=== PATIENT | male | born 1940 | race Caucasian/White ===

== ENCOUNTER → 2016-11-10 | Outpatient (CLI) | payer MEDICARE, OTHER ==
[~2016-11-10] MED LIST: ATOR10TA64 PO; BENA20TA3 PO; BENA5TAB3 PO; CHOL200026 PO; HYDR-3989 PO; TAMS0.4C47 PO
[2016-11-10 12:36] LABS: BASOPHILS # (AUTO) 0.1 T/MM3 (0-0.2); BASOPHILS % (AUTO) 0.7 % (0-2); EOSINOPHILS # (AUTO) 0.2 T/MM3 (0-0.5); EOSINOPHILS % (AUTO) 2.1 % (0-4); HCT - HEMATOCRIT 42.4 % (41-53); HGB - HEMOGLOBIN 14.1 GM/DL (13.5-17.5); IMMATURE GRANULOCYTE # (AUTO) 0.01 T/MM3 (0.00-0.03); IMMATURE GRANULOCYTE % (AUTO) 0.1 % (0.0-0.5); LYMPHOCYTES # (AUTO) 1.9 T/MM3 (1-4.8); LYMPHOCYTES % (AUTO) 26.4 % (23-45); MEAN CORPUSCULAR HGB 28.2 UUG (26-34); MEAN CORPUSCULAR HGB CONC(MCHC 33.3 GM/DL (31-37); MEAN CORPUSCULAR VOLUME 84.8 UM3 (80-100); MEAN PLATELET VOLUME 8.5 UM3 (9.4-12.4); MONOCYTES # (AUTO) 0.7 T/MM3 (0-0.8); NEUTROPHILS #(AUTO)-ABSOLUTE 4.4 T/MM3 (1.8-7.7); NEUTROPHILS % (AUTO) 60.7 % (33-66); WBC - WHITE BLOOD COUNT 7.2 T/MM3 (4.5-11.0)
[2016-11-10 12:46] LABS: ALBUMIN 4.3 G/DL (3.5-5.0); ALBUMIN/GLOBULIN RATIO 1.3 RATIO (1.1-2.2); ALKALINE PHOSPHATASE 86 U/L (38-126); ALT (SGPT) 35 U/L (21-72); ANION GAP 12 MEQ/L (5-15); AST (SGOT) 26 U/L (17-59); BUN/CREATININE RATIO 18 RATIO (6-26); CALCIUM 9.5 MG/DL (8.4-10.2); CHLORIDE 105 MEQ/L (98-107); CO2 - CARBON DIOXIDE 27 MEQ/L (22-30); CREATININE 1.2 MG/DL (0.8-1.5); GLOMERULAR FILTRATION RATE 59; GLUCOSE 107 MG/DL (75-110); LDH 350 U/L (313-618); POTASSIUM 4.6 MEQ/L (3.6-5); SODIUM 144 MEQ/L (134-144); TOTAL PROTEIN 7.5 G/DL (6.3-8.2)
== END ==
LOC: LAB 12:23
PROVIDERS: ATTEND Internal Medicine Hematology & Oncology
DX: C61 Malignant neoplasm of prostate (principal); C67.8 Malignant neoplasm of overlapping sites of bladder
CPT/HCPCS: 80053; 83615; 83735; 84153; 85025

== ENCOUNTER 2016-11-12 07:01 | Inpatient (IN) | payer MEDICARE, OTHER ==
[~2016-11-12] VITALS: Ht 175.3 cm; Wt 95.6 kg
[~2016-11-12 07:01] MED LIST changes: -BENA5TAB3 PO
--- OUTSIDE RECORDS SUMMARY | 2016-11-12 07:05 | XMS REPORT | Continuity of Care Document ---
Author Author [facility] Organization [facility] Address Unknown Phone Unavailable Support Name Relationship Address Phone KESHA COPELAND MD Caregiver [address] [place] [address] Unavailable WILY BOLTON Caregiver [address] [place] [address] Unavailable DEJUAN DUNNE Next Of Kin [address] [place] [address] Insurance Providers Guarantor Jamel Person Address [address] [place] [address] Email DENIED 16 Payer [place] Policy Number [id number] Subscriber's Name Jamel Person Relationship 18 Self Group Number PLANE Effective Date 05 Payer Medicare Policy Number [id number] Subscriber's Name Jamel Person Relationship 18 Self Effective Date 05 Problems Active Problems Medical Problem Onset Date Status Carbon monoxide exposure Unknown Acute Dizziness Unknown Acute Dizziness Unknown Acute Dizziness Unknown Acute Medications Current Home Medications Medication Dose Units Route Directions Days Qty Instructions Start Date Acetaminophen/Hydrocodone Bitart ([place] 5-325 Tablet) 1 Tab Tablet 1-2 Tab Oral Every 4-6 Hours as needed for Pain 15 Tablet 06/21/15 Atorvastatin Calcium 10 Mg Tablet 1 Tab Oral Bedtime 05/28/15 Benazepril Hcl 20 Mg Tablet 1 Tab Oral Daily 05/28/15 Cholecalciferol (Vitamin D3) (Vitamin D-3) 2,000 Unit Capsule 1 Tab Oral Daily 05/29/15 Tamsulosin Hcl 0.4 Mg Cap.er.24h 1 Tab Oral Bedtime 05/28/15 Past Home Medications Medication Directions Ordered Status Aspirin 81 Mg Tab.chew, 1 Tab Oral Daily 05/29/15 Discontinued [place]-3 Fatty Acids (Fish Oil) 300 Mg Capsule, 600 Daily 05/29/15 Discontinued Social History Social History Problem Response Recorded Date/Time Onset Date Status Hx Substance Use No 06/21/2015 6:54am Not Applicable Not Applicable Hx Alcohol Use No 06/21/2015 6:54am Not Applicable Not Applicable Has the pt used tobacco in the last 12 months No 09/22/2015 11:44am Not Applicable Not Applicable Hospital Discharge Instructions Current inpatient/outpatient. Discharge instructions are currently unavailable. Plan of Care Current inpatient/outpatient. The plan of care is currently unavailable Functional Status No functional status results. Allergies, Adverse Reactions, Alerts No known allergies. Immunizations Query Response on File Recorded Date/Time Hx Influenza Vaccination N REFUSED 09/22/15 11:44am Hx Pneumococcal Vaccination Y FALL 201409/22/15 11:44am Hx Influenza Vaccination N REFUSED 09/22/15 11:44am Vital Signs No known vital signs results. Results Laboratory Results Test Name Result Units Flags Reference Collection Date/Time Result Date/ Time Comments White Blood Count 6.1 T/MM3 4.5-11.0 09/22/2016 9:09/22/2016 9: 35am Red Blood Count 4.66 M/MM3 4.50-5.90 09/22/2016 9:09/22/2016 9: 35am Hemoglobin 13.2 GM/DL L 13.5-17.5 09/22/2016 9:09/22/2016 9:35am Hematocrit 40.7 % L 41-53 09/22/2016 9:09/22/2016 9:35am Mean Corpuscular Volume 87.3 UM3 80-100 09/22/2016 9:09/22/2016 9: 35am Mean Corpuscular Hemoglobin 28.3 UUG 26-34 09/22/2016 9:2016 9:35am Mean Corpuscular Hemoglobin Concent 32.4 GM/DL 31-37 09/22/2016 9:09/22/2016 9:35am RDW Standard Deviation 46.6 FL 36.9-50.2 09/22/2016 9:09/22/2016 9 :35am Platelet Count 251 T/MM3 130-400 09/22/2016 9:09/22/2016 9:35am Mean Platelet Volume 7.9 UM3 L 9.4-12.4 09/22/2016 9:09/22/2016 9: 35am Neutrophils (%) (Auto) 67.0 % H 33-66 09/22/2016 9:09/22/2016 9: 35am Lymphocytes (%) (Auto) 22.5 % L 23-45 09/22/2016 9:09/22/2016 9: 35am Monocytes (%) (Auto) 8.0 % 0-9.0 09/22/2016 9:09/22/2016 9:35am Eosinophils (%) (Auto) 2.0 % 0-4 09/22/2016 9:09/22/2016 9:35am Basophils (%) (Auto) 0.3 % 0-2 09/22/2016 9:09/22/2016 9:35am Immature Granulocyte % (Auto) 0.2 % 0.0-0.5 09/22/2016 9:2016 9:35am Absolute Neutrophils (auto) 4.1 T/MM3 1.8-7.7 09/22/2016 9:2016 9:35am Absolute Lymphocytes (auto) 1.4 T/MM3 1-4.8 09/22/2016 9:2016 9:35am Absolute Monocytes (auto) 0.5 T/MM3 0-0.8 09/22/2016 9:09/22/2016 9:35am Absolute Eosinophils (auto) 0.1 T/MM3 0-0.5 09/22/2016 9:2016 9:35am Absolute Basophils (auto) 0.0 T/MM3 0-0.2 09/22/2016 9:09/22/2016 9:35am Absolute Immature Granulocyte (auto 0.01 T/MM3 0.00-0.03 09/22/2016 9: 09/22/2016 9:35am Icterus Index < 2 0-7 09/22/2016 9:09/22/2016 9:45am Chemistry Specimen Hemolysis < 15 0-25 09/22/2016 9:09/22/2016 9 :45am 0-25: Specimen Exhibited No Hemolysis. Turbidity < 20 0-20 09/22/2016 9:09/22/2016 9:45am Sodium Level 145 MEQ/L H 134-144 09/22/2016 9:09/22/2016 9:45am Potassium Level 4.2 MEQ/L 3.6-5 09/22/2016 9:09/22/2016 9:45am Chloride Level 106 MEQ/L 98-107 09/22/2016 9:09/22/2016 9:45am Carbon Dioxide Level 27 MEQ/L -09/22/2016 9:09/22/2016 9: 45am Anion Gap 12 MEQ/L -09/22/2016 9:09/22/2016 9:45am Blood Urea Nitrogen 16.0 MG/DL -09/22/2016 9:09/22/2016 9: 45am Creatinine 1.2 MG/DL 0.8-1.5 09/22/2016 9:09/22/2016 9:45am BUN/Creatinine Ratio 13 RATIO 6-09/22/2016 9:09/22/2016 9:45am Glomerular Filtration Rate Calc 59 09/22/2016 9:09/22/2016 9: 45am Glucose Level 132 MG/DL H 75-110 09/22/2016 9:09/22/2016 9:45am Calculated Osmolality 282 MOSM/KG H 261-280 09/22/2016 9:2016 9:45am Calcium Level 9.6 MG/DL 8.4-10.2 09/22/2016 9:09/22/2016 9:45am Total Bilirubin 0.60 MG/DL 0.20-1.30 09/22/2016 9:09/22/2016 9: 45am Alkaline Phosphatase 82 U/L 38-126 09/22/2016 9:09/22/2016 9:45am Total Protein 7.4 G/DL 6.3-8.2 09/22/2016 9:09/22/2016 9:45am Albumin 4.2 G/DL 3.5-5.0 09/22/2016 9:09/22/2016 9:45am Globulin 3.2 G/DL 2.4-3.6 09/22/2016 9:09/22/2016 9:45am Albumin/Globulin Ratio 1.3 RATIO 1.1-2.2 09/22/2016 9:2909/22/2016 9 :45am Aspartate Amino Transf (AST/SGOT) 23 U/L 17-59 09/22/2016 9:292016 9:45am Alanine Aminotransferase (ALT/SGPT) 28 U/L 21-72 09/22/2016 9:29 9:45am Lactate Dehydrogenase 350 U/L 313-618 09/22/2016 9:2909/22/2016 9: 45am Magnesium Level 1.8 MG/DL 1.6-2.3 09/22/2016 9:2909/22/2016 9:45am Prostate Specific Antigen <0.1 ng/mL 0.0-6.5 09/22/2016 9:2016 3:45pm . A PSA Best Practice Guidelines: . Age-Adjusted PSA Values by Ethnic Group Age Range Asians - Caucasians . Americans 40-49 0-2.0 0-2.0 0-2.5 50-59 0-3.0 0-4.0 0-3.5 60-69 0-4.0 0-4.5 0-4.5 70-79 0-5.0 0-5.5 0-6.5 PSA performed at [facility] Reference Lab, [facility] [place] [address] Hammer Driver Florin Galvin DO Name: JAMEL PERSON Unit #: [id number] : 1940 Sex: M Admit Date: Loc / Svc: SHARIF Discharge Date: DIAGNOSTIC IMAGING REPORT Report #: [id number] [place], [place] Indication: ITS.REASON: C61 PROSTATE CANCER; C67.8, E83.42; N18.2 PROCEDURE: CT CHEST/ABDOMEN/PELVIS W/O: Encounter: Subsequent Comparison: CT chest, abdomen and pelvis dated July 02, 2016 Technique: Axial CT images were performed through the chest, abdomen and pelvis without intravenous contrast. Coronal and sagittal two-dimensional reformats. Automated Exposure Control and Iterative Reconstruction dose reducing techniques were utilized. Findings: Chest: The lungs are stable and grossly clear. No new or enlarging pulmonary nodules or masses. Stable nodular opacities and scarring in the lingula could be due to old infection. No axillary or mediastinal adenopathy. Heart size is normal. No pericardial effusion. Abdomen/pelvis: The unenhanced contours of the liver are unremarkable. Gallbladder is surgically absent. The spleen, pancreas, adrenal glands and kidneys are within normal limits. No abdominal or pelvic lymphadenopathy. 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 Mild sigmoid diverticulosis without acute diverticulitis. No evidence of a bowel obstruction. The appendix is normal. Bone windows show degenerative change in the spine without lytic or blastic osseous lesion. Impression: Stable exam without evidence of metastatic disease in the chest, abdomen or pelvis. . Procedures Procedure Status Date Provider(s) Routine venipuncture Completed 09/22/16 Ct thorax w/o dye Completed 09/22/16 Ct abd & pelvis w/o contrast Completed 09/22/16 Comprehen metabolic panel Completed 09/22/16 Lactate (ld) (ldh) enzyme Completed 09/22/16 Assay of magnesium Completed 09/22/16 Assay of psa total Completed 09/22/16 Complete cbc w/auto diff wbc Completed 09/22/16 Encounters Encounter Location Arrival/Admit Date Discharge/Depart Date Attending Provider Registered [facility] 09/22/16 9:15am WILY BOLTON Discharged Recurring [facility] 08/18/16 9:00am 10/02/16 11:59pm WILY BOLTON Discharged Recurring [facility] 07/07/16 1:39pm 08/09/16 11:22pm WILY BOLTON
--- OUTSIDE RECORDS SUMMARY | 2016-11-12 07:05 | XMS REPORT | Continuity of Care Document ---
Author Author [facility] Organization [facility] Address Unknown Phone Unavailable Support Name Relationship Address Phone KESHA COPELAND MD Caregiver [address] [place] [address] Unavailable WILY BOLTON Caregiver [address] [place] [address] Unavailable DEJUAN DUNNE Next Of Kin [address] [place] [address] Insurance Providers Guarantor Jamel Person Address [address] [place] [address] Email DENIED/NO PORTAL Payer Medicare Policy Number [id number] Subscriber's Name Jamel Person Relationship 18 Self Effective Date 05 Payer [place] Policy Number [id number] Subscriber's Name Jamel Person Relationship 18 Self Group Number PLANE Effective Date 05 Problems Active Problems Medical Problem Onset Date Status Carbon monoxide exposure Unknown Acute Dizziness Unknown Acute Dizziness Unknown Acute Dizziness Unknown Acute Medications Current Home Medications Medication Dose Units Route Directions Days Qty Instructions Start Date Atorvastatin Calcium 10 Mg Tablet 1 Tab Oral Bedtime 05/28/15 Benazepril Hcl 20 Mg Tablet 1 Tab Oral Daily 05/28/15 Cholecalciferol (Vitamin D3) (Vitamin D-3) 2,000 Unit Capsule 1 Tab Oral Daily 05/29/15 Hydrocodone/Acetaminophen (Hydrocodon-Acetaminophen 5-325) 1 Tab Tablet 1-2 Tab Oral Every 4-6 Hours as needed for Pain 15 Tablet 06/21/15 Tamsulosin Hcl 0.4 Mg Cap.er.24h 1 Tab Oral Bedtime 05/28/15 Past Home Medications Medication Directions Ordered Status Aspirin 81 Mg Tab.chew, 1 Tab Oral Daily 05/29/15 Discontinued [place]-3 Fatty Acids (Fish Oil) 300 Mg Capsule, [...] Result Date/ Time Comments White Blood Count 5.7 T/MM3 4.5-11.0 01/16/2016 8:50am 01/16/2016 9: 10am Red Blood Count 4.03 M/MM3 L 4.50-5.90 01/16/2016 8:50am 01/16/2016 9: 10am Hemoglobin 11.4 GM/DL L 13.5-17.5 01/16/2016 8:50am 01/16/2016 9:10am Hematocrit 35.6 % L 41-53 01/16/2016 8:50am 01/16/2016 9:10am Mean Corpuscular Volume 88.3 UM3 80-100 01/16/2016 8:50am 01/16/2016 9: 10am Mean Corpuscular Hemoglobin 28.3 UUG 26-34 01/16/2016 8:50am 2015 9:10am Mean Corpuscular Hemoglobin Concent 32.0 GM/DL 31-37 01/16/2016 8:50am 01/16/2016 9:10am RDW Standard Deviation 43.5 FL 36.9-50.2 01/16/2016 8:50am 01/16/2016 9 :10am Platelet Count 221 T/MM3 130-400 01/16/2016 8:50am 01/16/2016 9:10am Mean Platelet Volume 8.0 UM3 L 9.4-12.4 01/16/2016 8:50am 01/16/2016 9: 10am Neutrophils (%) (Auto) 63.9 % 33-66 01/16/2016 8:50am 01/16/2016 9: 10am Lymphocytes (%) (Auto) 22.6 % L 23-45 01/16/2016 8:50am 01/16/2016 9: 10am Monocytes (%) (Auto) 10.5 % H 0-9.0 01/16/2016 8:50am 01/16/2016 9:10am Eosinophils (%) (Auto) 2.3 % 0-4 01/16/2016 8:50am 01/16/2016 9:10am Basophils (%) (Auto) 0.5 % 0-2 01/16/2016 8:50am 01/16/2016 9:10am Immature Granulocyte % (Auto) 0.2 % 0.0-0.5 01/16/2016 8:50am 2015 9:10am Absolute Neutrophils (auto) 3.7 T/MM3 1.8-7.7 01/16/2016 8:50am 2015 9:10am Absolute Lymphocytes (auto) 1.3 T/MM3 1-4.8 01/16/2016 8:50am 2015 9:10am Absolute Monocytes (auto) 0.6 T/MM3 0-0.8 01/16/2016 8:50am 01/16/2016 9:10am Absolute Eosinophils (auto) 0.1 T/MM3 0-0.5 01/16/2016 8:50am 2015 9:10am Absolute Basophils (auto) 0.0 T/MM3 0-0.2 01/16/2016 8:50am 01/16/2016 9:10am Absolute Immature Granulocyte (auto 0.01 T/MM3 0.00-0.03 01/16/2016 8: 50am 01/16/2016 9:10am Neutrophils % (Manual) 82.0 % H 33-66 09/27/2015 10:50am 09/27/2015 11: 30am Band Neutrophils % 1.0 % 0-6 09/27/2015 10:50am 09/27/2015 11:30am Lymphocytes % (Manual) 7.0 % L 23-45 09/27/2015 10:50am 09/27/2015 11: 30am Monocytes % (Manual) 7.0 % 0-9.0 09/27/2015 10:50am 09/27/2015 11:30am Eosinophils % (Manual) 2.0 % 0-4 09/24/2015 9:00am 09/24/2015 9:53am Basophils % (Manual) 3.0 % H 0-2 09/27/2015 10:50am 09/27/2015 11:30am Metamyelocytes % 2.0 % H 0-0 08/30/2015 2:05pm 08/30/2015 2:53pm Band Neutrophils # 0.1 T/MM3 09/27/2015 10:50am 09/27/2015 11:30am Absolute Neutrophils (Manual) 10.3 T/MM3 H 1.8-7.7 09/27/2015 10:50am 11:30am Lymphocytes # (Manual) 0.9 T/MM3 L 1-4.8 09/27/2015 10:50am 09/27/2015 11:30am Monocytes # (Manual) 0.9 T/MM3 H 0-0.8 09/27/2015 10:50am 09/27/2015 11: 30am Eosinophils # (Manual) 0.4 T/MM3 0-0.5 09/24/2015 9:00am 09/24/2015 9: 53am Basophils # (Manual) 0.4 T/MM3 H 0-0.2 09/27/2015 10:50am 09/27/2015 11: 30am Metamyelocytes # 0.9 T/MM3 08/30/2015 2:05pm 08/30/2015 2:53pm Nucleated Red Blood Cells 1 08/30/2015 2:05pm 08/30/2015 2:53pm Red Cell Morphology Comment NORMAL 09/27/2015 10:50am 09/27/2015 11 :30am Icterus Index < 2 0-7 01/16/2016 8:50am 01/16/2016 9:22am Chemistry Specimen Hemolysis < 15 0-25 01/16/2016 8:50am 01/16/2016 9 :22am 0-25: Specimen Exhibited No Hemolysis. Turbidity < 20 0-20 01/16/2016 8:50am 01/16/2016 9:22am Sodium Level 142 MEQ/L 134-144 01/16/2016 8:50am 01/16/2016 9:22am Potassium Level 3.9 MEQ/L 3.6-5 01/16/2016 8:50am 01/16/2016 9:22am Chloride Level 108 MEQ/L H 98-107 01/16/2016 8:50am 01/16/2016 9:22am Carbon Dioxide Level 24 MEQ/L 22-30 01/16/2016 8:50am 01/16/2016 9: 22am Anion Gap 10 MEQ/L 5-15 01/16/2016 8:50am 01/16/2016 9:22am Blood Urea Nitrogen 17.0 MG/DL 9-01/16/2016 8:50am 01/16/2016 9: 22am Creatinine 1.0 MG/DL 0.8-1.5 01/16/2016 8:50am 01/16/2016 9:22am BUN/Creatinine Ratio 17 RATIO -01/16/2016 8:50am 01/16/2016 9:22am Glomerular Filtration Rate Calc 73 01/16/2016 8:50am 01/16/2016 9: 22am Glucose Level 104 MG/DL 75-110 01/16/2016 8:50am 01/16/2016 9:22am Calculated Osmolality 275 MOSM/KG 261-280 01/16/2016 8:50am 01/16/2016 9:22am Calcium Level 9.2 MG/DL 8.4-10.2 01/16/2016 8:50am 01/16/2016 9:22am Total Bilirubin 0.40 MG/DL 0.20-1.30 01/16/2016 8:50am 01/16/2016 9: 22am Alkaline Phosphatase 91 U/L 38-126 01/16/2016 8:50am 01/16/2016 9:22am Total Protein 7.0 G/DL 6.3-8.2 01/16/2016 8:50am 01/16/2016 9:22am Albumin 3.9 G/DL 3.5-5.0 01/16/2016 8:50am 01/16/2016 9:22am Globulin 3.1 G/DL 2.4-3.6 01/16/2016 8:50am 01/16/2016 9:22am Albumin/Globulin Ratio 1.3 RATIO 1.1-2.2 01/16/2016 8:50am 01/16/2016 9 :22am Aspartate Amino Transf (AST/SGOT) 22 U/L 17-59 01/16/2016 8:50am 2015 9:22am Alanine Aminotransferase (ALT/SGPT) 21 U/L 21-72 01/16/2016 8:50am 03/2016 9:22am Lactate Dehydrogenase 324 U/L 313-618 01/16/2016 8:50am 01/16/2016 9: 22am Magnesium Level 1.8 MG/DL 1.6-2.3 01/16/2016 8:50am 01/16/2016 9:22am Iron Level 57 UG/DL 49-181 08/16/2015 11:20am 08/17/2015 1:34am Total Iron Binding Capacity 271 UG/DL 261-497 08/16/2015 11:20am 2015 1:42am Percent Iron Saturation 21 % 13-59 08/16/2015 11:20am 08/17/2015 1: 42am Ferritin 992 NG/ML H 18-464 08/16/2015 11:20am 08/17/2015 2:13am Vitamin B12 Level > 1000 PG/ML H 239-931 08/16/2015 11:20am 08/17/2015 2 :42am Folate 8.4 NG/ML 2.76-20 08/16/2015 11:20am 08/17/2015 2:42am NORMAL ADULT RANGE: 2.76->20 ng/mL Haptoglobin 120 mg/dL 36-195 08/16/2015 11:20am 08/16/2015 11:15pm Haptoglobin performed at [facility], [address] [place] [address] Claims Counsel Florin Galvin DO Prostate Specific Antigen <0.1 ng/mL 0.0-6.5 01/16/2016 10:55am 2015 11:06pm . AUA PSA Best Practice Guidelines: . Age-Adjusted PSA Values by Ethnic Group Age Range Asians - Caucasians . Americans 40-49 0-2.0 0-2.0 0-2.5 50-59 0-3.0 0-4.0 0-3.5 60-69 0-4.0 0-4.5 0-4.5 70-79 0-5.0 0-5.5 0-6.5 PSA performed at [facility], [address] [place] [address] Claims Counsel Florin Galvin DO Name: JAMEL PERSON Unit #: [id number] : 1940 Sex: M Admit Date: Loc / Svc: SHARIF Discharge Date: DIAGNOSTIC IMAGING REPORT Report #: [id number] [place], [place] Indication: ITS.REASON: C61 PROSTATE CA; C67.8 BLADDER CA; D64.81 A; D70.1; E83.42; N18.2 PROCEDURE: CT CHEST/ABD/PELVIS WC: Encounter: Subsequent Comparison: Renal CT dated May 21, 2015 Technique: Axial CT images were performed through the chest, abdomen and pelvis after the administration of intravenous contrast. Coronal and sagittal two-dimensional reformats. Contrast: Omnipaque 300 100 mL Findings: Chest: Right internal jugular approach central venous port catheter in place. Minimal areas of subpleural fibrosis or scarring. No consolidation, pleural effusion or pneumothorax. No worrisome pulmonary nodules or masses. The central airways are patent. No axillary or mediastinal lymphadenopathy. Heart and great vessels are within normal limits. Abdomen/pelvis: Two tiny areas of differential enhancement in the anterior left lobe of the liver and anterior right lobe inferiorly could represent transient perfusion phenomena. No discrete liver masses to suggest metastatic disease. Gallbladder is surgically absent. No bile duct dilatation. The spleen appears normal. The pancreas and adrenal glands are normal. Right kidney appears normal. Left kidney shows three small probable cysts but no enhancing renal masses. There is moderate left hydronephrosis. Hydronephrosis is new from the comparison exam. No retroperitoneal or mesenteric lymphadenopathy by CT criteria. 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 Prior cystectomy and prostatectomy. No evidence of recurrent mass in the pelvis. No free fluid. Moderate stool throughout the colon. Left colonic diverticulosis without diverticulitis. The appendix is normal. Prominent duodenal diverticulum associated with the second portion. This is stable from the comparison. Bone windows show no evidence of lytic or blastic osseous lesion. Impression: 1. Postsurgical changes of prostatectomy and cystectomy with urinary diversion. 2. No evidence of metastatic disease in the chest, abdomen or pelvis. 3. Moderate left hydronephrosis. . Procedures Procedure Status Date Provider(s) CT THORAX W/DYE Completed 01/16/16 CT ABD & PELV W/CONTRAST Completed 01/16/16 461189"INFUSION, NORMAL SALINE SOLUTION , 250 CC" Completed 01/16/16 [id number]"LOW OSMOLAR CONTRAST MATERIAL, 300-399 MG/ML IODINE C Completed Encounters Encounter Location Arrival/Admit Date Discharge/Depart Date Attending Provider Registered Clinic [facility] 01/16/16 9:02am WILY BOLTON Discharged [facility] 01/16/16 9:00am 02/07/16 7:47pm WILY BOLTON
--- OUTSIDE RECORDS SUMMARY | 2016-11-12 07:05 | XMS REPORT | Continuity of Care Document ---
Author Author [facility] Organization [facility] Address Unknown Phone Unavailable Support Name Relationship Address Phone KESHA LOPEZ MD Caregiver [address] [facility] [address] [place] [address] Unavailable WILY BOLTON Caregiver [address] [place] [address] Unavailable DEJUAN DUNNE Next Of Kin [address] [place] [address] Insurance Providers Guarantor Jamel Person Address [address] [place] [address] Email DENIED/NO PORTAL Payer [employer] Policy Number [id number] Subscriber's Name Jamel ePrson Relationship 18 Self Group Number [id number] Effective Date 05 Payer Medicare Policy Number [id number] Subscriber's Name Jamel Person Relationship 18 Self [...] Tab.chew, 1 Tab Oral Daily 05/29/15 Discontinued [place]-3 Fatty Acids (Fish Oil) 300 Mg Capsule, 600 Daily 05/29/15 Discontinued Social History Social History Problem Response Recorded Date/Time Onset Date Status Hx Substance Use No 06/21/2015 6:54am Not Applicable Not Applicable Hx Alcohol Use No 06/21/2015 6:54am Not Applicable Not Applicable Has the pt used tobacco in the last 12 months No 09/22/2015 11:44am Not Applicable Not Applicable Hospital Discharge Instructions No hospital discharge instructions. Plan of Care Prescriptions See Medication Section Functional Status No functional status results. Allergies, Adverse Reactions, Alerts No known allergies. Immunizations Query Response on File Recorded Date/Time Hx Influenza Vaccination N REFUSED 09/22/15 11:44am Hx Pneumococcal Vaccination Y fall 201409/22/15 11:44am Hx Influenza Vaccination N REFUSED 09/22/15 11:44am Vital Signs No known vital signs results. Results Laboratory Results Test Name Result Units Flags Reference Collection Date/Time Result Date/ Time Comments White Blood Count 7.0 T/MM3 4.5-11.0 07/02/2016 9:52am 07/02/2016 10: 10am Red Blood Count 3.81 M/MM3 L 4.50-5.90 07/02/2016 9:52am 07/02/2016 10: 10am Hemoglobin 10.9 GM/DL L 13.5-17.5 07/02/2016 9:52am 07/02/2016 10:10am Hematocrit 33.2 % L 41-53 07/02/2016 9:52am 07/02/2016 10:10am Mean Corpuscular Volume 87.1 UM3 80-100 07/02/2016 9:52am 07/02/2016 10 :10am Mean Corpuscular Hemoglobin 28.6 UUG 26-34 07/02/2016 9:52am 2015 10:10am Mean Corpuscular Hemoglobin Concent 32.8 GM/DL 31-37 07/02/2016 9:52am 07/02/2016 10:10am RDW Standard Deviation 46.7 FL 36.9-50.2 07/02/2016 9:52am 07/02/2016 10:10am Platelet Count 368 T/MM3 D 130-400 07/02/2016 9:52am 07/02/2016 10:10am DELTA NOTED. MW Mean Platelet Volume 7.8 UM3 L 9.4-12.4 07/02/2016 9:52am 07/02/2016 10: 10am Neutrophils (%) (Auto) 73.3 % H 33-66 07/02/2016 9:52am 07/02/2016 10: 10am Lymphocytes (%) (Auto) 17.4 % L 23-45 07/02/2016 9:52am 07/02/2016 10: 10am Monocytes (%) (Auto) 6.3 % 0-9.0 07/02/2016 9:52am 07/02/2016 10:10am Eosinophils (%) (Auto) 1.9 % 0-4 07/02/2016 9:52am 07/02/2016 10:10am Basophils (%) (Auto) 0.4 % 0-2 07/02/2016 9:52am 07/02/2016 10:10am Immature Granulocyte % (Auto) 0.7 % H 0.0-0.5 07/02/2016 9:52am 2015 10:10am Absolute Neutrophils (auto) 5.1 T/MM3 1.8-7.7 07/02/2016 9:52am 2015 10:10am Absolute Lymphocytes (auto) 1.2 T/MM3 1-4.8 07/02/2016 9:52am 2015 10:10am Absolute Monocytes (auto) 0.4 T/MM3 0-0.8 07/02/2016 9:52am 07/02/2016 10:10am Absolute Eosinophils (auto) 0.1 T/MM3 0-0.5 07/02/2016 9:52am 2015 10:10am Absolute Basophils (auto) 0.0 T/MM3 0-0.2 07/02/2016 9:52am 07/02/2016 10:10am Absolute Immature Granulocyte (auto 0.05 T/MM3 H 0.00-0.03 07/02/2016 9: 52am 07/02/2016 10:10am Icterus Index < 2 0-7 07/02/2016 9:51am 07/02/2016 10:08am Chemistry Specimen Hemolysis < 15 0-25 07/02/2016 9:51am 07/02/2016 10:08am 0-25: Specimen Exhibited No Hemolysis. Turbidity < 20 0-20 07/02/2016 9:51am 07/02/2016 10:08am Sodium Level 143 MEQ/L 134-144 07/02/2016 9:51am 07/02/2016 10:08am Potassium Level 3.5 MEQ/L L 3.6-5 07/02/2016 9:51am 07/02/2016 10:08am Chloride Level 104 MEQ/L 98-107 07/02/2016 9:51am 07/02/2016 10:08am Carbon Dioxide Level 27 MEQ/L 22-30 07/02/2016 9:51am 07/02/2016 10: 08am Anion Gap 12 MEQ/L 5-15 07/02/2016 9:51am 07/02/2016 10:08am Blood Urea Nitrogen 16.0 MG/DL 9-07/02/2016 9:51am 07/02/2016 10: 08am Creatinine 1.1 MG/DL 0.8-1.5 07/02/2016 9:51am 07/02/2016 10:08am BUN/Creatinine Ratio 15 RATIO 6-07/02/2016 9:51am 07/02/2016 10: 08am Glomerular Filtration Rate Calc 65 07/02/2016 9:51am 07/02/2016 10: 08am Glucose Level 115 MG/DL H 75-110 07/02/2016 9:51am 07/02/2016 10:08am Calculated Osmolality 277 MOSM/KG 261-280 07/02/2016 9:51am 07/02/2016 10:08am Calcium Level 9.2 MG/DL 8.4-10.2 07/02/2016 9:51am 07/02/2016 10:08am Total Bilirubin 0.50 MG/DL 0.20-1.30 07/02/2016 9:51am 07/02/2016 10: 08am Alkaline Phosphatase 70 U/L 38-126 07/02/2016 9:51am 07/02/2016 10: 08am Total Protein 7.1 G/DL 6.3-8.2 07/02/2016 9:51am 07/02/2016 10:08am Albumin 3.9 G/DL 3.5-5.0 07/02/2016 9:51am 07/02/2016 10:08am Globulin 3.2 G/DL 2.4-3.6 07/02/2016 9:51am 07/02/2016 10:08am Albumin/Globulin Ratio 1.2 RATIO 1.1-2.2 07/02/2016 9:51am 07/02/2016 10:08am Aspartate Amino Transf (AST/SGOT) 21 U/L 17-59 07/02/2016 9:51am 2015 10:08am Alanine Aminotransferase (ALT/SGPT) 32 U/L 21-72 07/02/2016 9:51am 10:08am Lactate Dehydrogenase 315 U/L 313-618 07/02/2016 9:51am 07/02/2016 10: 08am Magnesium Level 1.8 MG/DL 1.6-2.3 07/02/2016 9:51am 07/02/2016 10:08am Iron Level 36 UG/DL L 49-181 07/02/2016 9:51am 07/04/2016 1:30am Total Iron Binding Capacity 322 UG/DL 261-497 07/02/2016 9:51am 2015 1:40am Percent Iron Saturation 11 % L 13-59 07/02/2016 9:51am 07/04/2016 1: 40am Ferritin 168 NG/ML 18-464 07/02/2016 9:51am 07/04/2016 2:23am Vitamin B12 Level 498 PG/ML 239-931 07/02/2016 9:51am 07/04/2016 2: 52am Folate 17.6 NG/ML 2.76-20 07/02/2016 9:51am 07/04/2016 2:53am NORMAL ADULT RANGE: 2.76->20 ng/mL Haptoglobin 227 mg/dL H 36-195 07/02/2016 9:51am 07/02/2016 10:08pm Haptoglobin performed at [facility], [address] [place] [address] Pipe Coverer Florin Galvin DO Homocysteine 15.0 umol/L 5.5-16.2 07/02/2016 9:51am 07/02/2016 9:34pm Homocysteine performed at [facility], [address] [place] [address] Pipe Coverer Florin Galvin DO Methylmalonic Acid 0.14 nmol/mL <=0.40 07/02/2016 9:51am 07/08/2016 9: 10am Test Performed by: [address] [address] Hazardous Waste Material Technician: Dong Wilson II, M.D., Ph.D. Methylmalonic Acid, Serum performed at [facility], [address] [id number] Pipe Coverer Katie Coyle MD Prostate Specific Antigen 0.1 ng/mL 0.0-6.5 07/02/2016 9:51am 2015 11:18pm . AUA PSA Best Practice Guidelines: . Age-Adjusted PSA Values by Ethnic Group Age Range Asians - Caucasians . Americans 40-49 0-2.0 0-2.0 0-2.5 50-59 0-3.0 0-4.0 0-3.5 60-69 0-4.0 0-4.5 0-4.5 70-79 0-5.0 0-5.5 0-6.5 PSA Reflex performed at [facility], [address] [place] [id number] Pipe Coverer Florin Galvin, Procedures Procedure Status Date Provider(s) ROUTINE VENIPUNCTURE Completed 07/02/16 CT THORAX W/O DYE Completed 07/02/16 CT ABD & PELVIS W/O CONTRAST Completed 07/02/16 COMPREHEN METABOLIC PANEL Completed 07/02/16 VITAMIN B-12 Completed 07/02/16 ASSAY OF FERRITIN Completed 07/02/16 ASSAY OF FOLIC ACID SERUM Completed 07/02/16 ASSAY OF HAPTOGLOBIN QUANT Completed 07/02/16 ASSAY OF HOMOCYSTINE Completed 07/02/16 ASSAY OF IRON Completed 07/02/16 IRON BINDING TEST Completed 07/02/16 LACTATE (LD) (LDH) ENZYME Completed 07/02/16 ASSAY OF MAGNESIUM Completed 07/02/16 ORGANIC ACID SINGLE QUANT Completed 07/02/16 ASSAY OF PSA TOTAL Completed 07/02/16 COMPLETE CBC W/AUTO DIFF WBC Completed 07/02/16 ROUTINE VENIPUNCTURE Completed 06/05/16 COMPREHEN METABOLIC PANEL Completed 06/05/16 LACTATE (LD) (LDH) ENZYME Completed 06/05/16 ASSAY OF MAGNESIUM Completed 06/05/16 COMPLETE CBC W/AUTO DIFF WBC Completed 06/05/16 Encounters Encounter Location Arrival/Admit Date Discharge/Depart Date Attending Provider Discharged Recurring [facility] 07/07/16 1:39pm 08/09/16 11:22pm WILY BOLTON Registered [facility] 07/02/16 9:32am WILY BOLTON Registered Clinic [facility] 06/05/16 1:00pm WILY BOLTON
--- OUTSIDE RECORDS SUMMARY | 2016-11-12 07:05 | XMS REPORT | Continuity of Care Document ---
Author Author [facility] Organization 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 10/30/2015 Mendoza Redman MD E78.0 PURE HYPERCHOLESTEROLEMIA 10/30/2015 Mendoza Redman MD E83.51 HYPOCALCEMIA 10/30/2015 Mendoza Redman MD I10 ESSENTIAL (PRIMARY) HYPERTENSION 10/30/2015 Mendoza Redman MD N13.39 OTHER HYDRONEPHROSIS Procedures Code Description Performed By Performed On 33IQ0XN RESECTION OF PELVIS LYMPHATIC, PERC ENDO APPROACH Mendoza Redman MD 10/30/2015 [id number] RELEASE SIGMOID COLON, PERCUTANEOUS ENDOSCOPIC KYRIE Mendoza Redman MD 10/30/2015 [id number] BYPASS BI URETER TO ILEOCUTAN W AUTOL SUB, PERC EN 10/30/2015 [id number] RESECTION OF BLADDER, PERCUTANEOUS ENDOSCOPIC APPR 10/30/2015 [id number] RESECTION OF PROSTATE, PERCUTANEOUS ENDOSCOPIC KYRIE Mendoza Redman MD 10/30/2015 [id number] ROBOTIC ASSISTED PROCEDURE OF TRUNK, PERC ENDO KYRIE Mendoza Redman MD 10/30/2015 Results Test Result Range PLATELET COUNT - 06/20/15 07:34 PLATELET COUNT 291 k/cumm 150-400 PROTHROMBIN TIME WITH INR - 06/20/15 07:34 INTERNATIONAL NORMAL RATIO 1.0 0.9-1.1 PROTHROMBIN TIME 11.4 sec 9.3-12.2 PARTIAL THROMBOPLASTIN TIME - 06/20/15 07:34 PARTIAL THROMBOPLASTIN TIME 36 sec 23-39 BLOOD UREA NITROGEN - 06/20/15 08:12 BLOOD UREA NITROGEN 16 mg/dL 7-20 CREATININE - 06/20/15 08:12 EST GFR (MDRD) > 60 mL/min > 59 CREATININE 1.0 mg/dL 0.7-1.3 CBC - 10/23/15 14:34 MEAN CELL HGB 32.1 pg 27.0-33.0 MEAN CELL HGB CONCENTRATION 32.9 g/dL 32.0-37.0 MEAN CELL VOLUME 97.4 fl 80.0-100.0 RED BLOOD CELL 3.52 m/cumm 4.00-6.00 RED CELL DISTRIBUTION WIDTH 14.9 % 11.0- 15.6 WHITE BLOOD CELL 6.5 k/cumm 5.0-10.0 HEMOGLOBIN 11.3 gm/dL 14.0-18.0 HEMATOCRIT 34.3 % 40.0-54.0 PLATELET COUNT 206 k/cumm 150-400 PROTHROMBIN TIME WITH INR - 10/23/15 14:34 INTERNATIONAL NORMAL RATIO 1.0 0.9-1.1 PROTHROMBIN TIME 11.4 sec 9.3-12.2 PARTIAL THROMBOPLASTIN TIME - 10/23/15 14:34 PARTIAL THROMBOPLASTIN TIME 35 sec 23-39 METABOLIC PANEL, BASIC - 10/23/15 14:34 POTASSIUM 3.9 mmol/L 3.5-5.3 EST GFR (MDRD) 59 mL/min > 59 ANION GAP 8 mmol/L 5-15 GLUCOSE 169 mg/dL 70-99 CALCIUM 8.6 mg/dL 8.5-10.1 BLOOD UREA NITROGEN 22 mg/dL 7-20 CREATININE 1.2 mg/dL 0.7-1.3 SODIUM 138 mmol/L 135-148 CHLORIDE 105 mmol/L 98-110 CARBON DIOXIDE 25 mmol/L 21-32 HGB HCT - 10/30/15 11:52 MEAN CELL VOLUME 97.4 fl 80.0-100.0 HEMOGLOBIN 8.9 gm/dL 14.0-18.0 HEMATOCRIT 26.7 % 40.0-54.0 HGB HCT - 10/30/15 13:42 MEAN CELL VOLUME 96.3 fl 80.0-100.0 HEMOGLOBIN 9.6 gm/dL 14.0-18.0 HEMATOCRIT 28.6 % 40.0-54.0 HGB HCT - 10/31/15 05:57 MEAN CELL VOLUME 95.1 fl 80.0-100.0 HEMOGLOBIN 9.1 gm/dL 14.0-18.0 HEMATOCRIT 27.1 % 40.0-54.0 METABOLIC PANEL, BASIC - 10/31/15 05:57 POTASSIUM 4.6 mmol/L 3.5-5.3 EST GFR (MDRD) 59 mL/min > 59 ANION GAP 6 mmol/L 5-15 EST CrCl (CG) > 60 mL/min > 59 GLUCOSE 145 mg/dL 70-99 CALCIUM 8.1 mg/dL 8.5-10.1 BLOOD UREA NITROGEN 20 mg/dL 7-20 CREATININE 1.2 mg/dL 0.7-1.3 SODIUM 137 mmol/L 135-148 CHLORIDE 105 mmol/L 98-110 CARBON DIOXIDE 26 mmol/L 21-32 CBC W/MANUAL DIFF - 11/01/15 07:36 MEAN CELL HGB 31.9 pg 27.0-33.0 MEAN CELL HGB CONCENTRATION 34.0 g/dL 32.0-37.0 MEAN CELL VOLUME 93.9 fl 80.0-100.0 RED BLOOD CELL 3.29 m/cumm 4.00-6.00 RED CELL DISTRIBUTION WIDTH 13.8 % 11.0- 15.6 WHITE BLOOD CELL 17.2 k/cumm 5.0-10.0 HEMOGLOBIN 10.5 gm/dL 14.0-18.0 HEMATOCRIT 30.9 % 40.0-54.0 PLATELET COUNT 176 k/cumm 150-400 MANUAL DIFF(O) - 11/01/15 07:36 EOSINOPHIL # 0.2 k/cumm 0.1-0.5 EOSINOPHIL % 1 % 2-4 GRANULOCYTE # 15.5 k/cumm 2.0-9.0 LYMPHOCYTE # 0.3 k/cumm 1.0-4.0 LYMPHOCYTE % 2 % 20-30 DIFFERENTIAL MANUAL MONOCYTE # 1.2 k/cumm 0.1-1.0 MONOCYTE % 7 % 4-6 RBC MORPH NOTED SEGMENTED NEUTROPHIL % 90 % 50-70 METABOLIC PANEL, BASIC - 11/01/15 07:36 POTASSIUM 4.5 mmol/L 3.5-5.3 EST GFR (MDRD) > 60 mL/min > 59 ANION GAP 8 mmol/L 5-15 EST CrCl (CG) > 60 mL/min > 59 GLUCOSE 171 mg/dL 70-99 CALCIUM 7.7 mg/dL 8.5-10.1 BLOOD UREA NITROGEN 20 mg/dL 7-20 CREATININE 0.9 mg/dL 0.7-1.3 SODIUM 133 mmol/L 135-148 CHLORIDE 102 mmol/L 98-110 CARBON DIOXIDE 23 mmol/L - MAGNESIUM - 11/01/15 11:38 MAGNESIUM 1.6 mg/dL 1.8-2.4 CBC W/DIFF - 11/02/15 05:19 EOSINOPHIL # 0.1 k/cumm 0.1-0.5 EOSINOPHIL % 1 % 2-4 GRANULOCYTE # 12.1 k/cumm 2.0-9.0 GRANULOCYTE % 80 % 50-75 LYMPHOCYTE # 1.5 k/cumm 1.0-4.0 LYMPHOCYTE % 10 % 20-30 MEAN CELL HGB 32.2 pg 27.0-33.0 MEAN CELL HGB CONCENTRATION 34.5 g/dL 32.0-37.0 MEAN CELL VOLUME 93.3 fl 80.0-100.0 MONOCYTE # 1.3 k/cumm 0.1-1.0 MONOCYTE % 9 % 4-6 RED BLOOD CELL 2.98 m/cumm 4.00-6.00 RED CELL DISTRIBUTION WIDTH 13.5 % 11.0- 15.6 WHITE BLOOD CELL 15.1 k/cumm 5.0-10.0 HEMOGLOBIN 9.6 gm/dL 14.0-18.0 HEMATOCRIT 27.8 % 40.0-54.0 PLATELET COUNT 188 k/cumm 150-400 METABOLIC PANEL, BASIC - 11/02/15 05:20 POTASSIUM 4.3 mmol/L 3.5-5.3 EST GFR (MDRD) > 60 mL/min > 59 ANION GAP 7 mmol/L 5-15 EST CrCl (CG) > 60 mL/min > 59 GLUCOSE 158 mg/dL 70-99 CALCIUM 7.3 mg/dL 8.5-10.1 BLOOD UREA NITROGEN 25 mg/dL 7-20 CREATININE 0.9 mg/dL 0.7-1.3 SODIUM 134 mmol/L 135-148 CHLORIDE 104 mmol/L 98-110 CARBON DIOXIDE 23 mmol/L 32 MAGNESIUM - 11/02/15 05:20 MAGNESIUM 1.9 mg/dL 1.8-2.4 FLUID CREATININE - 11/03/15 00:20 FLUID CREATININE 111.0 mg/dL NOT DEFINED CBC - 11/05/15 05:01 MEAN CELL HGB 32.0 pg 27.0-33.0 MEAN CELL HGB CONCENTRATION 33.5 g/dL 32.0-37.0 MEAN CELL VOLUME 95.5 fl 80.0-100.0 RED BLOOD CELL 2.44 m/cumm 4.00-6.00 RED CELL DISTRIBUTION WIDTH 14.5 % 11.0- 15.6 WHITE BLOOD CELL 6.9 k/cumm 5.0-10.0 HEMOGLOBIN 7.8 gm/dL 14.0-18.0 HEMATOCRIT 23.3 % 40.0-54.0 PLATELET COUNT 222 k/cumm 150-400 FLUID CREATININE - 11/05/15 08:35 FLUID CREATININE 1.0 mg/dL NOT DEFINED Encounters ACCT No. Visit Date/Time Discharge Status Pt. Type Provider Facility Loc./Unit Complaint [id number] 03/26/2016 13:04:00 2015 00:00:00 DIS Outpatient Feroz KESSLER, [facility] W.KEESHA [id number] 10/30/2015 06:27:00 2015 14:12:00 DIS Inpatient Feroz KESSLER [facility] W.8TN [id number] 10/23/2015 13:31:00 2015 13:31:00 DIS Outpatient Feroz KESSLER, [facility] WRAFIQA [id number] 06/20/2015 07:00:00 2014 07:00:00 DIS Outpatient Feroz KESSLER, [facility] W.LARISSA
--- OUTSIDE RECORDS SUMMARY | 2016-11-12 07:05 | XMS REPORT | Referral Summary ---
Author Author [facility] Organization [facility] Address Unknown Phone Unavailable Care Team Providers Care Carpet Cleaning Technician Name Role Phone Eduardo Copeland Primary Care Physician [phone] Encounter VC Date(s): 06/23/16 - 06/26/16 [facility] [address] [place], [place] [address] Discharge Disposition: 01-Home or Self Care Attending Physician: Bakari Alexis MD Admitting Physician: Bakari Alexis MD Vital Signs Most recent to 1 oldest [Reference Range]: Temperature Oral 36.9 degC [35.8-37.3 degC] (06/26/16 12:00 PM) Temperature Temporal 36.5 degC Artery [36.3-37.8 (06/24/16 8:00 AM) degC] Peripheral Pulse 93 bpm Rate [60-100 bpm] (06/26/16 12:00 PM) Heart Rate Monitored 110 bpm [60-100 bpm] *HI* (06/25/16 8:00 PM) Respiratory Rate 16 br/min [14-20 br/min] (06/26/16 12:00 PM) Blood Pressure 137/76 mmHg [90-140/60-90 mmHg] (06/26/16 12:00 PM) Mean Arterial 81 mmHg Pressure, Cuff (06/23/16 11:14 AM) SpO2 93 % (06/26/16 12:00 PM) Problem List Condition Effective Dates Status Health Status Informant Acute Active pain(Confirmed) Hyperlipemia(Confirm Active patient ed) Hypertension(Confirm Active patient ed) 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) 1Problem added automatically by system based on initiation of Impaired Skin Integrity Plan of Care Allergies, Adverse Reactions, Alerts No Known Medication Allergies Medications atorvastatin 10 mg oral tablet 10 mg 1 tabs, Oral, Daily Start Date: 06/20/16 Status: Ordered benazepril 5 mg oral tablet 5 mg 1 tabs, Oral, Daily Start Date: 06/20/16 Status: Ordered Colace 100 mg oral capsule 100 mg 1 caps, Oral, BID, as needed for constipation, 0 Refill(s) Start Date: 06/25/16 Status: Ordered Multiple Vitamins oral tablet 1 tabs, Oral, Daily Start Date: 06/20/16 Status: Ordered [place] 5 mg-325 mg oral tablet 1-2 tabs, Oral, q4hr, Pain Moderate (4-6), # 30 tabs, 0 Refill(s), other reason (Rx) Start Date: 06/25/16 Stop Date: 07/02/16 Status: Ordered Protonix 40 mg oral delayed release tablet 40 mg 1 tabs, Oral, Daily, 0 Refill(s) Start Date: 06/26/16 Status: Ordered Vitamin D3 2000 intl units oral tablet 2,000 Intl_Units 1 tabs, Oral, Daily Start Date: 06/20/16 Status: Ordered Results Hematology Most recent to 1 oldest [Reference Range]: WBC [4.8-10.8 11.8 10*3/uL 10*3/uL] *HI* (06/26/16 5:12 AM) RBC [4.60-6.20] 3.76 *LOW* (06/26/16 5:12 AM) Hgb [14.0-18.0 10.6 gm/dL gm/dL] *LOW* (06/26/16 5:12 AM) Hct [42.0-52.0 %] 33.1 % *LOW* (06/26/16 5:12 AM) MCV [82.0-99.0 fL] 88.0 fL (06/26/16 5:12 AM) MCH [27.0-32.0 pg] 28.2 pg (06/26/16 5:12 AM) MCHC [32.0-36.0 32.0 gm/dL gm/dL] (06/26/16 5:12 AM) RDW [11.5-14.5 %] 15.4 % *HI* (06/26/16 5:12 AM) Platelet [150-400 236 10*3/uL 10*3/uL] (06/26/16 5:12 AM) MPV [9.4-12.3 fL] 8.7 fL *LOW* (06/26/16 5:12 AM) Chemistry Most recent to 1 oldest [Reference Range]: Sodium Lvl [136-144 135 mEq/L mEq/L] *LOW* (06/26/16 5:12 AM) Potassium Lvl 4.7 mEq/L [3.6-5.1 mEq/L] (06/26/16 5:12 AM) Chloride [99-109 103 mEq/L mEq/L] (06/26/16 5:12 AM) CO2 [22-32 mEq/L] 27 mEq/L (06/26/16 5:12 AM) AGAP [3-20] 5 (06/26/16 5:12 AM) BUN [4-20 mg/dL] 38 mg/dL *HI* (06/26/16 5:12 AM) Glucose Lvl [70-100 119 mg/dL mg/dL] *HI* (06/26/16 5:12 AM) Creatinine Lvl 1.26 mg/dL [0.64-1.27 mg/dL] (06/26/16 5:12 AM) eGFR [>60] 56 1 *ABN* (06/26/16 5:12 AM) Calcium Lvl 8.3 mg/dL [8.6-10.0 mg/dL] *LOW* (06/26/16 5:12 AM) Albumin Lvl [3.5-4.8 2.5 gm/dL gm/dL] *LOW* (06/26/16 5:12 AM) Magnesium Lvl 1.7 mg/dL [1.8-2.5 mg/dL] *LOW* (06/26/16 5:12 AM) Phosphorus [2.4-4.7 2.7 mg/dL 2 mg/dL] (06/26/16 5:12 AM) Blood Glucose, 103 mg/dL Capillary [70-100 *HI* mg/dL] (06/23/16 6:08 AM) 1Result Comment: Multiply eGFR results by 1.21 for race. 2Result Comment: High dosages of liposomal Amphotericin B (AmBisome) therapy or other drug preparations that use a liposomal envelope to facilitate drug delivery may cause falsely elevated results for phosphorus. Immunizations No data available for this section Procedures Procedure Date Related Diagnosis Body Site Laparotomy Exploratory1 06/23/16 Resection Bowel2 06/23/16 Cholecystectomy Colonoscopy Cystectomy Hernia Prostatectomy 1auto-populated from documented surgical case 2auto-populated from documented surgical case Social History Social History Type Response Smoking Status Never smoker Assessment and Plan No data available for this section
--- OUTSIDE RECORDS SUMMARY | 2016-11-12 07:05 | XMS REPORT | Continuity of Care Document ---
Author Author [facility] Organization [facility] Address Unknown Phone Unavailable Support Name Relationship Address Phone LEANN WALLIS MD Caregiver [address] [place] [address] KESHA LOPEZ MD Caregiver [address] [facility] [address] [place] [phone] BRUNO ALMENDAREZ MD Caregiver [address] [place] [address] [place] [phone] DEJUAN DUNNE Next Of Kin [address] [place], [place] [id number] Insurance Providers Payer Name Policy Number Subscriber Name Relationship Medicare [id number] Jamel Person 18 Self [place] [id number] Jamel Person 18 Self Advance Directives Directive Response Recorded Date/Time Advanced Directives Type None 07/03/14 5:52pm Problems Medical Problems Problem Onset Date Status Dizziness Unknown Active Dizziness Unknown Active Carbon monoxide exposure Unknown Active Medications Medication Dose Route Sig Days/Qty Instructions Order Date Discontinued Date Status [Benazepril Hcl20 M1] Mg 07/03/14 Active [Atorvastatin Ca10 M1] Mg 07/03/14 Active Clare-3 Fatty Acids 07/03/14 Active Social History Social History Problem Response Recorded Date/Time Smoking Status Never smoker 07/03/2014 7:14pm Hx Alcohol Use No 07/03/2014 7:14pm Hospital Discharge Instructions No hospital discharge instructions. Plan of Care No plan of care. Functional Status Query Response Date Recorded Physical Hygiene Self July 03, 2014 7:14pm Disabilities None July 03, 2014 7:14pm Devices Used Glasses July 03, 2014 7:14pm Dressing Self July 03, 2014 7:14pm Ambulation Self July 03, 2014 7:14pm Diet Self July 03, 2014 7:14pm Mental Status Alert Oriented July 03, 2014 8:37pm Disabilities None July 03, 2014 7:14pm Devices Used Glasses July 03, 2014 7:14pm Physical Hygiene Self July 03, 2014 7:14pm Dressing Self July 03, 2014 7:14pm Ambulation Self July 03, 2014 7:14pm Diet Self July 03, 2014 7:14pm Allergies, Adverse Reactions, Alerts Allergen Type Severity Reaction Status Last Updated No Known Allergies Active 07/03/14 Immunizations No immunization records. Vital Signs Acute Vital Signs Vital Response Date/Time Temperature (Fahrenheit) 96.8 deg F (96.8 - 99.1) Temperature (Calculated Celsius) 36.54830 degrees C (36.0 - 37.3) Pulse Rate (adult) 96 bpm (60 - 100) Respiratory Rate 18 breaths/min (10 - 20) O2 Sat by Pulse Oximetry 94 % (90 - 100) Blood Pressure 157/81 mm Hg Height 5 ft 10 in Weight 198 lb Body Mass Index 28.0 kg/m^2 Results Test Source Date Result Interp. Ref. Range Comments Alanine Aminotransferase (ALT/SGPT) July 03, 2014 6:14pm 37 U/L N 21 -72 Albumin July 03, 2014 6:14pm 4.1 G/DL N 3.5-5.0 Albumin/Globulin Ratio July 03, 2014 6:14pm 1.3 RATIO N 1.1-2.2 Alkaline Phosphatase July 03, 2014 6:14pm 77 U/L N 38-126 Anion Gap July 03, 2014 6:14pm 12 MEQ/L N 5-15 Aspartate Amino Transf (AST/SGOT) July 03, 2014 6:14pm 33 U/L N 17- 59 BUN/Creatinine Ratio July 03, 2014 6:14pm 29 RATIO H 6-26 Basophils # (Auto) July 03, 2014 6:14pm 0.1 T/MM3 N 0-0.2 Basophils (%) (Auto) July 03, 2014 6:14pm 1.3 % N 0-2 Blood Urea Nitrogen July 03, 2014 6:14pm 26.0 MG/DL H 9-20 Calcium Level July 03, 2014 6:14pm 9.3 MG/DL N 8.4-10.2 Calculated Osmolality July 03, 2014 6:14pm 279 MOSM/KG N 261-280 Carbon Dioxide Level July 03, 2014 6:14pm 25 MEQ/L N 22-30 Carboxyhemoglobin July 03, 2014 6:09pm 1.9 % H 0.5-1.5 NORMAL RANGESNONSMOKERS:0.5-1.5% SMOKERS, 1-2 PKS/D 4-5% SMOKERS, >2 PKS/D 8/9% TOXIC: >20% Chloride Level July 03, 2014 6:14pm 105 MEQ/L N 98-107 Creatinine July 03, 2014 6:14pm 0.9 MG/DL N 0.8-1.5 Eosinophils # (Auto) July 03, 2014 6:14pm 0.1 T/MM3 N 0-0.5 Eosinophils (%) (Auto) July 03, 2014 6:14pm 1.4 % N 0-4 Globulin July 03, 2014 6:14pm 3.1 G/DL N 2.4-3.6 Glucose Level July 03, 2014 6:14pm 120 MG/DL H 75-110 Hematocrit July 03, 2014 6:14pm 43.2 % N 41-53 Hemoglobin July 03, 2014 6:14pm 14.8 GM/DL N 13.5-17.5 Lymphocytes # (Auto) July 03, 2014 6:14pm 1.1 T/MM3 N 1-4.8 Lymphocytes (%) (Auto) July 03, 2014 6:14pm 11.7 % L 23-45 Mean Corpuscular Hemoglobin July 03, 2014 6:14pm 30.8 UUG N 26-34 Mean Corpuscular Hemoglobin Concent July 03, 2014 6:14pm 34.3 GM/DL N 31-37 Mean Corpuscular Volume July 03, 2014 6:14pm 89.8 UM3 N 80-100 Mean Platelet Volume July 03, 2014 6:14pm 8.8 UM3 L 9.4-12.4 Monocytes # (Auto) July 03, 2014 6:14pm 0.5 T/MM3 N 0-0.8 Monocytes (%) (Auto) July 03, 2014 6:14pm 4.7 % N 0-9.0 Neutrophils # (Auto) July 03, 2014 6:14pm 7.9 T/MM3 H 1.8-7.7 Neutrophils (%) (Auto) July 03, 2014 6:14pm 80.6 % H 33-66 Platelet Count July 03, 2014 6:14pm 215 T/MM3 N 130-400 Potassium Level July 03, 2014 6:14pm 4.5 MEQ/L N 3.6-5 RDW Standard Deviation July 03, 2014 6:14pm 43.2 FL N 36.9-50.2 Red Blood Count July 03, 2014 6:14pm 4.81 M/MM3 N 4.50-5.90 Sodium Level July 03, 2014 6:14pm 142 MEQ/L N 134-144 Total Bilirubin July 03, 2014 6:14pm 0.80 MG/DL N 0.20-1.30 Total Protein July 03, 2014 6:14pm 7.2 G/DL N 6.3-8.2 Troponin I July 03, 2014 6:14pm < 0.012 ng/ml 0-0.12 Urine Bacteria July 03, 2014 7:56pm 2+ H - Has specimen been collected/obtained? Y Urine Bilirubin July 03, 2014 7:56pm Negative - Has specimen been collected/obtained? Y Urine Blood July 03, 2014 7:56pm 1+ H - Has specimen been collected /obtained? Y Urine Collection Type July 03, 2014 7:56pm Cleancatch-midstream - Has specimen been collected/obtained? Y Urine Color July 03, 2014 7:56pm Yellow - Has specimen been collected/obtained? Y Urine Culture Indicated July 03, 2014 7:56pm Cult not indicated - Has specimen been collected/obtained? Y Urine Glucose (UA) July 03, 2014 7:56pm Negative - Has specimen been collected/obtained? Y Urine Ketones July 03, 2014 7:56pm 2+ H - Has specimen been collected/obtained? Y Urine Leukocyte Esterase July 03, 2014 7:56pm Negative - Has specimen been collected/obtained? Y Urine Nitrite July 03, 2014 7:56pm Negative - Has specimen been collected/obtained? Y Urine Protein July 03, 2014 7:56pm Negative - Has specimen been collected/obtained? Y Urine RBC July 03, 2014 7:56pm 3-5 /HPF H - Has specimen been collected/obtained? Y Urine Specific [place] July 03, 2014 7:56pm 1.020 - Has specimen been collected/obtained? Y Urine Squamous Epithelial Cells July 03, 2014 7:56pm 0-5 - Has specimen been collected/obtained? Y Urine Turbidity July 03, 2014 7:56pm Clear - Has specimen been collected/obtained? Y Urine Urobilinogen July 03, 2014 7:56pm 0.2 EU/DL - Has specimen been collected/obtained? Y Urine WBC July 03, 2014 7:56pm 5-10 /HPF H - Has specimen been collected/obtained? Y Urine pH July 03, 2014 7:56pm 7.5 - Has specimen been collected/ obtained? Y White Blood Count July 03, 2014 6:14pm 9.8 T/MM3 N 4.5-11.0 Chemistry Specimen Hemolysis July 03, 2014 6:14pm 75 H 0-25 0-25: No Hemolysis.26-70: Slight Hemolysis - can falsely elevate K and Urine Protein. 71-285: Moderate Hemolysis - can falsely elevate K, Troponin I, CA 19-9, PTH, CSF GLucose, and Urine Protein, and can falsely decrease Phenytoin. 286-999: Gross Hemolysis - can falsely elevate K, Troponin I, CA 19-9, PTH, CSF Glucose, and Urine Protine, and can falsely decrease Phenytoin. Recommend specimen recollection. Turbidity July 03, 2014 6:14pm < 20 0-20 Glomerular Filtration Rate Calc July 03, 2014 6:14pm 82 - Immature Granulocyte # (Auto) July 03, 2014 6:14pm 0.03 T/MM3 N 0.00 -0.03 Immature Granulocyte % (Auto) July 03, 2014 6:14pm 0.3 % N 0.0-0.5 Icterus Index July 03, 2014 6:14pm < 2 0-7 Procedures No known history of procedures. Encounters Encounter Location Date/Time Departed Emergency Room [facility] 07/03/14 5:35pm Recent Diagnosis
--- NOTE | 2016-11-12 07:08 | NUR ---
EKG EKG TAKEN AND GIVEN TO DR Ramsey JOSEPH
[2016-11-12] MEDS ORDERED: BENA5TAB3 PO (07:18)
--- NOTE | 2016-11-12 07:19 | NUR ---
DR Ramsey JOSEPH IN
--- OUTSIDE RECORDS SUMMARY | 2016-11-12 07:29 | XMS REPORT | Continuity of Care Document ---
Author Author [facility] Organization [facility] Address Unknown Phone Unavailable Allergies Active Description [...] Procedures Code Description Performed By Performed On [id number] RESECTION OF PELVIS LYMPHATIC, PERC ENDO APPROACH Mendoza Redman MD 10/30/2015 [id number] RELEASE SIGMOID COLON, PERCUTANEOUS ENDOSCOPIC KYRIE Mendoza Redman MD 10/30/2015 [id number] BYPASS BI URETER TO ILEOCUTAN W AUTOL SUB, PERC EN 10/30/2015 [id number] RESECTION OF BLADDER, PERCUTANEOUS ENDOSCOPIC APPR 10/30/2015 [id number] RESECTION OF PROSTATE, PERCUTANEOUS ENDOSCOPIC KYRIE Mendoza Redman MD 10/30/2015 [id number] ROBOTIC ASSISTED PROCEDURE OF TRUNK, PERC ENDO [...] Status Pt. Type Provider Facility Loc./Unit Complaint [id number] 03/26/2016 13:04:00 2015 00:00:00 DIS Outpatient Feroz KESSLER, [facility] W.KEESHA [id number] 10/30/2015 06:27:00 2015 14:12:00 DIS Inpatient Feroz KESSLER [facility] W.8TN [id number] 10/23/2015 13:31:00 2015 13:31:00 DIS Outpatient Feroz KESSLER, [facility] WRAFIQA [id number] 06/20/2015 07:00:00 2014 07:00:00 DIS Outpatient Feroz KESSLER, [facility] W.LARISSA
[2016-11-12] MEDS ORDERED: NITROGLYCERIN 0.4 MG SUBLINGUAL TABLET SL PRN (07:30)
[2016-11-12] MEDS ORDERED: ASPIRIN 81 MG CHEWABLE TABLET PO ONE (07:30)
[2016-11-12] MEDS ORDERED: G.I. COCKTAIL 30ml PO ONE (07:30)
--- OUTSIDE RECORDS SUMMARY | 2016-11-12 07:30 | XMS REPORT | Continuity of Care Document ---
Author Author [facility] Organization [facility] Address Unknown Phone Unavailable Support Name Relationship Address Phone LEANN WALLIS MD Caregiver [address] [place] [address] KESHA LOPEZ MD Caregiver [address] [facility] [address] [place] [phone] BRUNO ALMENDAREZ MD Caregiver [address] [place] [address] [place] [phone] DEJUAN DUNNE Next Of Kin [address] [place], [place] [id number] Insurance Providers Payer Name Policy Number Subscriber Name Relationship Medicare [id number] Jamel Person 18 Self [place] [id number] Jamel Person 18 Self Advance Directives Directive Response Recorded Date/Time Advanced Directives Type None 07/03/14 5:52pm Problems Medical Problems Problem Onset Date Status Dizziness Unknown Active Dizziness Unknown Active Carbon monoxide exposure Unknown Active Medications Medication Dose Route Sig Days/Qty Instructions Order Date Discontinued Date Status [Benazepril Hcl20 M1] Mg 07/03/14 Active [Atorvastatin Ca10 M1] Mg 07/03/14 Active Drury-3 Fatty Acids 07/03/14 Active Social History Social [...] F (96.8 - 99.1) Temperature (Calculated Celsius) 36.49350 degrees C (36.0 - 37.3) Pulse Rate [...] Has specimen been collected/obtained? Y Urine Specific [place] July 03, 2014 7:56pm 1.020 - Has [...] Encounters Encounter Location Date/Time Departed Emergency Room [facility] 07/03/14 5:35pm Recent Diagnosis
--- NOTE | 2016-11-12 07:33 | ERPDOC ---
Departure Disposition Decision Date: Nov 12, 2016 Disposition Decision Time: 09:15 Disposition: 02 TO OBS [facility] Impression Impression Impression: Primary Impression: SIRS (systemic inflammatory response syndrome) Additional Impressions: Leukocytosis Leukocytosis type: bandemia Qualified Codes: D72.825 - Bandemia Acute hyperglycemia Severity: Moderate Condition: Stable Seen By: Physician only Referrals: KESHA LOPEZ MD (Family) Problems/Meds/Labs Reviewed?: Yes Medications reviewed and manag: Yes Follow up care ordered?: Yes (admitted) Mental Status: Alert, Oriented HPI - Chest Pain General Chief Complaint: Chest Pain Stated Complaint: TIGHTNESS IN CHEST Time Seen by Provider: 07:25 Source: patient, family (son and ), RN notes reviewed, old records Exam Limitations: no limitations HPI - Chest Pain Initial Comments This patient comes in complaining of chest tightness. He started getting some indigestion yesterday about noon, then by evening felt some chest tightness that was in a band across the lower portion of his chest anteriorly. He felt this come and go all night long. This morning he feels a lot of heartburn again and has some moderate nausea, but no emesis. Initially yesterday he felt like he was getting a stomach bug. However, he has had no diarrhea. He also has had an episode that started like this in the past that turned out to be a pneumonia. He denies any fever, diaphoresis, or dyspnea. He has had no cough or other respiratory symptoms. He did have a brief episode where he felt like he was getting hot and he opened his jacket, but di not have any diaphoresis with it. Occurred At: home Onset/Timing: Rapid Duration: 12-24 hrs Pain/Severity Scale: Now: 3/10 Location: anterior R, anterior L 1 - band of tightness, intermittent Quality: tightness Associated Symptoms: heartburn, nausea/vomiting, DENIES: abdominal pain, back pain, diaphoresis, dizziness, edema, fast HR, fatigue, fever/chills, headache, irregular HR, rash, shortness of breath, slow HR, swelling/lump in chest, syncope, weakness Chest Pain Radiation: no radiation Nitro Today/Relief: no nitro taken today Aspirin Treatment Today: 81 mg x 4, provided by ED Prior Chest Pain/Cardiac Nagi: non-cardiac Hx of Similar Symptoms: Yes (when had pneumonia) Allergies: Coded Allergies: No Known Allergies (Unverified , 11/12/16) Past History Past Medical History Metabolic: cancer (bladder cancer, prostate cancer), hypercholesterolemia, hypertension ENMT: allergies (as a kid especially), cataracts Surgical History General: gallbladder, hernia, other (cataracts, power port) Reproductive/: other (cystoscopy, resection bladder tumor, radical cystectomy with urostomy) Family History Family PMH: FOUND: CAD (dad), cancer (uncle pancreatic, aunt breast), other ( mother - cirrhosis of the liver) Vaccines Hx Influenza Vaccination: No (REFUSED) Hx Pneumococcal Vaccination: Yes (FALL 2014) Social History Smoking Status: Never smoker Substance Use Type: does not use Alcohol Intake: none Marital Status: Record Review Pertinent history updated: Yes Review of Systems Constitutional Constitutional: appetite decrease, DENIES: chills, dizziness, fever, weakness Eyes General: DENIES: pain Lids/Accessories: DENIES: erythema Vision: DENIES: blurring ENMT Ears: DENIES: pain Hearing: DENIES: hearing loss Balance: DENIES: vertigo Sinuses: DENIES: congestion, rhinorrhea Mouth/Throat: DENIES: sore throat Teeth: DENIES: pain Cardiovascular Cardiac: chest pain, see HPI, DENIES: dyspnea on exertion Rhythm/Rate: DENIES: palpitations Vascular: DENIES: pedal edema, unilateral swelling Pulmonary Respiratory: cough (occasionally has little coughing spells which he attributes to his CISCO inhibitor), DENIES: dyspnea, sputum GI Upper Abdomen: heartburn/indigestion, nausea, see HPI, DENIES: vomiting Lower Abdomen: DENIES: blood in stool, constipation, diarrhea General: other (no change in the urine in the urostomy bag), DENIES: dysuria, hematuria Male: DENIES: hesitancy Musculoskeletal General: DENIES: joint pain, pain Integumentary Skin: DENIES: itching, rash Neurological General: DENIES: headache, memory disturbances, seizures, syncope Psychiatric Psychiatric: DENIES: anxiety, depression Endocrine Endocrine: DENIES: heat/cold intolerance Hematologic/Lymphatic Hematologic/Lymphatic: DENIES: anemia, easy bruising Allergic/Immunological Allergic/Immunoligical: sneezing Comments He always sneezes a number of time when he wakes up -- chronic. Physical Exam General General Nourishment: well nourished, well developed, appears stated age, no acute distress, adult General Body Habitus: well groomed Vitals and Pain First Documented Vital Signs Date Time Temp Pulse Resp B/P Pulse Ox O2 Delivery O2 Flow Rate FiO2 11/12/16 07:03 97.6 81 18 162/72 98 Room Air Weight: Kilograms: 93.500 Height (feet): 5 Height (inches): 10.00 Triage Pain Scale: RN VS reviewed by Provider: Yes Normal Exams: Head: Normocephalic w/o trauma Eyes: Pupils are PERRLA w/ EOMI, No scleral icterus, irritation, or foreign bodies noted ENMT: No facial trauma, nasal exudates, pharyngeal erythema, or exudates are noted Dental: No fractured, loose, or missing teeth noted Neck: Full range of motion, without adenopathy, JVD, bruits or thyromegaly Chest/Resp: Clear all zheng, with good airflow, and symmetry bilaterally CV: Regular rate and rhythm, without murmur or gallop, Pulses 2+ all extremities, capillary refill, <2 seconds all ext., no pedal edema noted Abdomen: Bowel sounds positive, soft, non-tender, non-distended, no hepatosplenomegaly, masses or bruits noted Musculoskeletal: No tenderness, or deformity noted, good range of motion, all extremities Integumentary: No rashes, hives, or bruising noted, hair and nails, without abnormality Neurologic: Patient is alert, and oriented, cranial nerves, motor/sensory/ cerebellar, exams w/o gross deficits, to observation Psychiatric: Patient exhibits, appropriate attention, emotion and affect Abdomen (brief) Comments urostomy bag present lower abdomen Differential Diagnoses Considering: Acute SD, Anxiety/Panic, Angina, Costochondritis, Esophageal Spasm , GERD, Pancreatitis, Pneumonia, Muscle Spasm, Other (early gastroenteritis) Progress Results/Orders Orders Procedure Category Date Status Time Cbc W/Auto LAB 11/12/16 Complete Diff-Reflex Manual 07:20 Bmp - Basic Metabolic LAB 11/12/16 Complete Panel 07:20 Probnp LAB 11/12/16 Complete 07:20 Troponin I W LAB 11/12/16 Complete Hemolysis Index 07:20 INR LAB 11/12/16 Complete 07:20 EKG EKG 11/12/16 Taken 07:20 Chest 1 View RAD 11/12/16 Resulted 07:20 Iv Lock (Ed Only) EDM 11/12/16 Transmitted 07:20 Aspirin (Asa) PHA 11/12/16 Complete 07:30 Nitroglycerin PHA 11/12/16 In Process (Nitrostat) 07:30 G.I. Cocktail PHA 11/12/16 Complete (/Maalox/Lidocaine 07:30 Pantoprazole PHA 11/12/16 Complete (Protonix Iv) 08:00 Normal Saline (Normal PHA 11/12/16 Complete Saline Iv) 08:00 Lipase LAB 11/12/16 Complete Blood Culture RL 11/12/16 In Process Vancomycin (Vancocin) PHA 11/12/16 In Process 09:00 Lactate - Lactic Acid LAB 11/12/16 Complete Lactate - Lactic Acid LAB 11/12/16 Logged 13:50 Procalcitonin LAB 11/12/16 Complete Levofloxacin 750 Mg PHA 11/12/16 Complete Ivpb (Levaquin 750 M 09:30 Iv Lock (Ed Only) EDM 11/12/16 Transmitted 09:20 Place In Facility: ED ADM 11/12/16 Transmitted 09:22 Measure Vital Signs ANUEL 11/12/16 In Process 09:22 Activity As Tolerated ANUEL 11/12/16 In Process 09:22 Regular Diet DIET 11/12/16 Transmitted Lunch Normal Saline (Normal PHA 11/12/16 In Process Saline Iv) 09:22 Notify Adm Physician ANUEL 11/12/16 In Process In Am 09:22 Compression Type Scd/ ANUEL 11/12/16 In Process Kg Hose 09:22 Heparin Flush PHA 11/12/16 Complete (Heparin Flush) 09:30 UA, LAB 11/12/16 Complete Dip&Micro(Complete) & 09:15 Urine Culture RL 11/12/16 In Process 09:52 Troponin I W LAB 11/12/16 Logged Hemolysis Index 13:50 Troponin I W LAB 11/12/16 Logged Hemolysis Index 18:00 Telemetry ANUEL 11/12/16 In Process 11:24 Compression Type Scd/ ANUEL 11/12/16 In Process Kg Hose 11:24 Pantoprazole PHA 11/12/16 In Process (Protonix Iv) 21:00 Sucralfate (Carafate) PHA 11/12/16 In Process 11:30 Ondansetron Inj PHA 11/12/16 In Process (Zofran) 11:30 Atorvastatin (Lipitor PHA 11/12/16 In Process 10 Mg) 22:00 Benazepril (Lotensin PHA 11/13/16 In Process 10 Mg) 09:00 Lab Results Laboratory Tests Test 11/12/16 07:41 11/12/16 07:51 11/12/16 09:11 11/12/16 09:15 White Blood Count 12.1T/MM3 Red Blood Count 5.41M/MM3 Hemoglobin 15.1GM/DL Hematocrit 45.3% Mean Corpuscular Volume 83.7UM3 Mean Corpuscular Hemoglobin 27.9UUG Mean Corpuscular Hemoglobin Concent 33.3GM/DL RDW Standard Deviation 47.0FL Platelet Count 255T/MM3 Mean Platelet Volume 8.5UM3 Immature Granulocyte % (Auto) % Neutrophils (%) (Auto) % Lymphocytes (%) (Auto) % Monocytes (%) (Auto) % Eosinophils (%) (Auto) % Basophils (%) (Auto) % Absolute Immature Granulocyte (auto T/MM3 Absolute Neutrophils (auto) T/MM3 Absolute Lymphocytes (auto) T/MM3 Absolute Monocytes (auto) T/MM3 Absolute Eosinophils (auto) T/MM3 Absolute Basophils (auto) T/MM3 Neutrophils % (Manual) 91.0% Band Neutrophils % 3.0% Lymphocytes % (Manual) 4.0% Monocytes % (Manual) 2.0% Absolute Neutrophils (Manual) 11.0T/MM3 Band Neutrophils # 0.4T/MM3 Lymphocytes # (Manual) 0.5T/MM3 Monocytes # (Manual) 0.2T/MM3 Red Cell Morphology Comment Normal Prothromb Time International Ratio 1.07 Turbidity < 20 Sodium Level 142MEQ/L Potassium Level 5.1MEQ/L Chloride Level 100MEQ/L Carbon Dioxide Level 26MEQ/L Anion Gap 16MEQ/L Blood Urea Nitrogen 23.0MG/DL Creatinine 1.2MG/DL Glomerular Filtration Rate Calc 59 BUN/Creatinine Ratio 19RATIO Glucose Level 209MG/DL Calculated Osmolality 283MOSM/KG Calcium Level 10.0MG/DL Icterus Index < 2 Troponin I < 0.012ng/ml UK-Peu-P-Type Natriuretic Peptide 49PG/ML Chemistry Specimen Hemolysis < 15 Lipase 105U/L Plasma Lactate 2.0MMOL/L Procalcitonin < 0.05NG/ML Urine Collection Type Urine Color Yellow Urine Turbidity Sl cloudy Urine pH 6.0 Urine Specific [employer] 1.020 Urine Protein 1+ Urine Glucose (UA) Negative Urine Ketones Trace Urine Blood Trace-intact Urine Nitrite Positive Urine Bilirubin Negative Urine Urobilinogen 1.0EU/DL Urine Leukocyte Esterase 2+ Urine RBC 5-10/HPF Urine WBC 20-30/HPF Urine Squamous Epithelial Cells 0-5 Urine Bacteria 3+ Urine Hyaline Casts 1-3/LPF Urine Mucus Present Urine Culture Indicated Cult reflexed &setup Medications Current ED Medications Aspirin (ASA) 324 mg O ONCE PO Last administered on 11/12/16 07:40; Start 11/12 at 07:30; Stop 11/12/16 at 07:31; Status DC Nitroglycerin (Nitrostat) 0.4 mg Q5MIN PRN SL CHEST PAIN; Start 11/12/16 at 07: 30 Pharmacy Profile Note (/Maalox/ Lidocaine Soln) 30 ml O ONCE PO Last administered on 11/12/16 07:39; Start 11/12/16 at 07:30; Stop 11/12/16 at 07:31; Status DC Pantoprazole Sodium 40 mg 40 mg O ONCE IV Last administered on 11/12/16 07:59 ; Start 11/12/16 at 08:00; Stop 11/12/16 at 08:01; Status DC Sodium Chloride 1,000 ml @ 1,000 mls/hr Q1H ONCE IV Last administered on 07:59; Start 11/12/16 at 08:00; Stop 11/12/16 at 08:59; Status DC Vancomycin HCl 1000 mg/Sodium Chloride 250 ml @ 250 mls/hr Q12H IV Last administered on 11/12/16 09:35; Start 11/12/16 at 09:00 Sodium Chloride (Normal Saline IV) 1,000 ml @ 100 mls/hr Q10H IV Last administered on 11/12/16 10:35; Start 11/12/16 at 09:22 Progress Progress Patient given GI cocktail with minimal improvement. NS and Protonix given -- now has hiccups, but tightness is gone. EKG shows no acute changes, CXR is normal, troponin normal. However, his WBC has gone from 7.2 two days ago to 12.1 today with ANC increase from 4.4 to 11.0. With his history of when he gets sick he can suddenly go downhill fast, Dr Karimi is concerned. He suggests one option is that this may be an early sepsis from an infected port, since they flushed his port two days ago. He recommends blood cultures and IV Vancomycin. UA is also pending to look for UTI but is from a urostomy bag so may be contaminated. Since he also had an early pneumonia present like this in the past he would also add Levaquin and admit for observation. Patient does qualify as having SIRS with WBC >12,000 and glucose>120 in absence of diabetes ( glucose was 107 two days ago and 209 today). EKG EKG : Rate: 60-100 Rhythm: sinus [place]: normal QRS: normal Intervals: normal ST/T: non-specific changes Interpreted by: signing physician EKG Comments unchanged compared to 07/03/14 Consult/PCP Consult/PCP : Type of discussion: Admit Discussion/PCP, Phone Consult/PCP Discussion Details 0900 -- Dr Karimi -- discussed presentation and labs,EKG,CXR. See above discussion -- recommends admission. Hospitalist paged -- [phone] -- Dr Buenrostro - - will admit. Xray Xray : Xray: CXR Portable Interpretation: Normal, Reviewed Written Report CARRIE JOSEPH MD Nov 12, 2016 07:33
--- NOTE | 2016-11-12 07:45 | NUR ---
DR Ramsey JOSEPH IN
[2016-11-12 07:47] LABS: HCT - HEMATOCRIT 45.3 % (41-53); HGB - HEMOGLOBIN 15.1 GM/DL (13.5-17.5); MEAN CORPUSCULAR HGB 27.9 UUG (26-34); MEAN CORPUSCULAR HGB CONC(MCHC 33.3 GM/DL (31-37); MEAN CORPUSCULAR VOLUME 83.7 UM3 (80-100); MEAN PLATELET VOLUME 8.5 UM3 (9.4-12.4); RED BLOOD COUNT 5.41 M/MM3 (4.50-5.90); WBC - WHITE BLOOD COUNT 12.1 T/MM3 (4.5-11.0)
[2016-11-12 07:51] LABS: INR 1.07 (0.76-1.04); PROTHROMBIN TIME 11.7 SEC (9.31-12.49)
[2016-11-12 07:55] LABS: BUN/CREATININE RATIO 19 RATIO (6-26); CHLORIDE 100 MEQ/L (98-107); CO2 - CARBON DIOXIDE 26 MEQ/L (22-30); CREATININE 1.2 MG/DL (0.8-1.5); GLOMERULAR FILTRATION RATE 59
[2016-11-12 07:56] LABS: ANION GAP 16 MEQ/L (5-15); GLUCOSE 209 MG/DL (75-110); POTASSIUM 5.1 MEQ/L (3.6-5); SODIUM 142 MEQ/L (134-144)
[2016-11-12] MEDS ORDERED: NORMAL SALINE 1,000 ML IV ONE (08:00)
[2016-11-12] MEDS ORDERED: PANTOPRAZOLE 40mg INJECTION IV ONE (08:00)
[2016-11-12 08:04] LABS: PROBNP 49 PG/ML (0-175)
--- NOTE | 2016-11-12 08:26 | DI ---
Indication: ITS.REASON: CHEST TIGHTNESS PROCEDURE: CHEST 1 VIEW: Encounter: Initial Comparison: Chest CT dated September 22, 2016 FINDINGS: The lungs are mildly hypoinflated, but clear. There is no abnormal airspace opacity, pleural effusion or pneumothorax identified. Slight blunting of left costophrenic angle is due to pleural thickening or scarring seen on the comparison CT. The heart size, pulmonary vasculature and mediastinum are unchanged. Right IJ port. IMPRESSION: No acute cardiopulmonary abnormality. .
--- NOTE | 2016-11-12 08:30 | NUR ---
ASSESS FEELS SOME BETTER. HAS HICCUPS
[2016-11-12 08:34] LABS: BAND NEUTROPHILS # 0.4 T/MM3; LYMPHOCYTES # (MANUAL) 0.5 T/MM3 (1-4.8); MONOCYTES # (MANUAL) 0.2 T/MM3 (0-0.8); TOTAL CELLS COUNTED 100 %
[2016-11-12] MEDS ORDERED: VANCOMYCIN 1,000 MG in NORMAL SALINE 250 ML IV SCH (09:00)
[2016-11-12] MEDS ORDERED: LEVOFLOXACIN 750 mg IVPB 750 MG in D5W 150 ML IV ONE (09:30)
[2016-11-12 09:37] LABS: BLOOD, URINE TRACE-INTACT (NEGATIVE); COLOR,URINE YELLOW (YELLOW); LEUKOCYTE ESTERASE ,URINE 2+ (NEGATIVE); NITRITE,URINE POSITIVE (NEGATIVE)
--- OUTSIDE RECORDS SUMMARY | 2016-11-12 09:42 | XMS REPORT | Continuity of Care Document ---
Author Author [facility] Organization [facility] Address Unknown Phone Unavailable Support Name Relationship Address Phone LEANN WALLIS MD Caregiver [address] [place] [address] KESHA LOPEZ MD Caregiver [address] [facility] [address] [place] [id number] BRUNO ALMENDAREZ MD Caregiver [address] [place] [address] [place] [phone] DEJUAN DUNNE Next Of Kin [address] [place], [place] [id number] Insurance Providers Payer Name Policy Number Subscriber Name Relationship Medicare [id number] Jamel Person 18 Self [place] [id number] Jamel Person 18 Self Advance Directives Directive Response Recorded Date/Time Advanced Directives Type None 07/03/14 5:52pm Problems Medical Problems Problem Onset Date Status Dizziness Unknown Active Dizziness Unknown Active Carbon monoxide exposure Unknown Active Medications Medication Dose Route Sig Days/Qty Instructions Order Date Discontinued Date Status [Benazepril Hcl20 M1] Mg 07/03/14 Active [Atorvastatin Ca10 M1] Mg 07/03/14 Active [place]-3 Fatty Acids 07/03/14 Active Social History Social [...] F (96.8 - 99.1) Temperature (Calculated Celsius) 36.47493 degrees C (36.0 - 37.3) Pulse Rate [...] Has specimen been collected/obtained? Y Urine Specific [place] July 03, 2014 7:56pm 1.020 - Has [...] Encounters Encounter Location Date/Time Departed Emergency Room [facility] 07/03/14 5:35pm Recent Diagnosis
--- OUTSIDE RECORDS SUMMARY | 2016-11-12 09:42 | XMS REPORT | Continuity of Care Document ---
Author Author [facility] Organization [facility] Address Unknown Phone Unavailable Allergies Active Description [...] Procedures Code Description Performed By Performed On [id number] RESECTION OF PELVIS LYMPHATIC, PERC ENDO APPROACH Mendoza Redman MD 10/30/2015 [id number] RELEASE SIGMOID COLON, PERCUTANEOUS ENDOSCOPIC KYRIE Mendoza Redman MD 10/30/2015 [id number] BYPASS BI URETER TO ILEOCUTAN W AUTOL SUB, PERC EN 10/30/2015 [id number] RESECTION OF BLADDER, PERCUTANEOUS ENDOSCOPIC APPR 10/30/2015 [id number] RESECTION OF PROSTATE, PERCUTANEOUS ENDOSCOPIC KYRIE Mendoza Redman MD 10/30/2015 [id number] ROBOTIC ASSISTED PROCEDURE OF TRUNK, PERC ENDO [...] Status Pt. Type Provider Facility Loc./Unit Complaint [id number] 03/26/2016 13:04:00 2015 00:00:00 DIS Outpatient Feroz KESSLER, [facility] W.KEESHA [id number] 10/30/2015 06:27:00 2015 14:12:00 DIS Inpatient Feroz KESSLER [facility] W.8TN [id number] 10/23/2015 13:31:00 2015 13:31:00 DIS Outpatient Feroz KESSLER, [facility] WRAFIQA [id number] 06/20/2015 07:00:00 2014 07:00:00 DIS Outpatient Feroz KESSLER, [facility] W.LARISSA
--- NOTE | 2016-11-12 09:45 | NUR ---
STATUS MONITOR REMAINS SR. VS STABLE. HICCUPS HAVE STOPPED. NO CP. STOMACH FEELS BETTER
[2016-11-12 09:51] LABS: BACTERIA,URINE 3+ (NEGATIVE); SQUAMOUS EPITHELIAL CELL,UR 0-5; WBC,URINE 20-30 /HPF (0-5)
[2016-11-12 09:52] LABS: MUCUS,URINE PRESENT
--- NOTE | 2016-11-12 10:00 | NUR ---
TRANSPORT PER WC ACCOMPANIED BY FAMILY & RN TO RM 141. TOLERATED ACTIVITY WELL. CARE ASSUMED BY ЕЛЕНА ZAMBRANO
[2016-11-12 10:04] VITALS: BP 163/73; PULSE 72; RESP 14; TEMP 96.5; O2SAT 99
[2016-11-12 10:07] VITALS: BMI 31.1
[2016-11-12] MEDS: NORMAL SALINE 1,000 ML IV SCH (10:35)
[2016-11-12 10:47] VITALS: Ht 175.3 cm; Wt 95.6 kg
[2016-11-12] MEDS ORDERED: ONDANSETRON 4mg/2ml INJECTION IV PRN (11:30)
[2016-11-12] MEDS: SUCRALFATE 1 G TABLET PO SCH ×3 (11:49→21:41)
--- NOTE | 2016-11-12 11:50 | HPPDOC ---
LEA GARDNER V BIOINFORMATICS SCIENTIST 11/12/16 1131: HPI - Adult Date DATE: 11/12/16 TIME: 11:21 General Chief Complaint: Chest tightness History of Present Illness Patient is a 76-year-old male who presented to the ER this morning with complaint of chest pressure and tightness. He informs that beginning yesterday at noon he began to have some stomach symptoms including heartburn. This continued throughout the night and developed into upper abdominal and lower chest tightness. In the ER he was given ASA, NS, Protonix and a GI cocktail. Since the GI cocktail he has been having hiccups, the GI cocktail did not alleviate his pain. Initial lab work includes INR 1.07. Creatine is 1.2 with BUN of 23. His potassium is elevated at 5.1. Troponin, EKG and CXR normal, UA positive for nitrates, 2+ Leukocytes, 3+ bacteria. WBC elevated at 12.1 with left shift. Lactate is 2. He was also given Levaquin 750mg IV and Vancomycin 1gm IV. UA cx with sensitivity and BC are pending. Upon exam he reports that his hiccups have since resolved. He is still having the epigastric discomfort, he reports that he has had heartburn in the past, however this episode is different. He had a NM stress test approximately 5 years ago which was negative. He is a patient of Dr. Karimi for his bladder cancer, he follows up with him approximately every [address] scans. He also goes to Dr. Karimi' s office for his port-a-cath flushing. This was last completed on Thursday, 11/10. Given symptoms of UTI with continued chest discomfort the hospitalist service was contacted. We will place him in outpatient observation for further evaluation and treatment. Jamel is seen today for initial examination. He is alert and oriented and pleasant, resting in his bed with family at his bedside. His only current complaint is epigastric discomfort. He is able to give accurate history and present illness. We did discuss a gastric doesn't patient is verbalizes wish to be a full code Past Medical History Past Medical History Hx of Pneumonia Bladder and Prostrate Cancer- Resolved HTN HLD Cataracts Surgical History Patient's Surgical History: Cholecystecomy Inguinal Hernia repair Stoma Hernia Repair Port-a-Cath insertion (06/2015) Cystectomy with urostomy Current Medications Home Meds Reported Medications Benazepril HCl (Benazepril HCl) 5 Mg Tablet, 1 TAB PO DAILY, TAB 11/12/16 Cholecalciferol (Vitamin D3) (Vitamin D-3) 2,000 Unit Capsule, 1 TAB PO DAILY 05/29/15 Atorvastatin Calcium (Atorvastatin Calcium) 10 Mg Tablet, 1 TAB PO HS, TAB 05/28/15 Allergies: Coded Allergies: No Known Allergies (Unverified , 11/12/16) Family History Family History: Father positive for CAD Mother positive for liver cirrhosis Maternal Uncle positive for Pancreatic Cancer Maternal Aunt positive for Breast Cancer Social History Smoking Status: Never smoker Substance Use Type: does not use Alcohol Intake: none Marital Status: Advance Directives: Yes Full Code, No DPOA for Healthcare Only Social History Comments PCP- Dr Copeland Oncologist- Dr. Karimi Review of Systems Constitutional: REPORTS: appetite decrease (Since this yesterday), difficulty falling asleep, fatigue Cardiovascular chest pain Pulmonary Respiratory: pneumonia hx GI Upper Abdomen: heartburn/indigestion, nausea, pain (With palpation) General: other (Hx of bladder cancer with urostomy) All Other Systems All Other Systems: Reviewed (remainder of 10-point ROS Neg.) Physical Exam General General Nourishment: well nourished General Body Habitus: well groomed Vital Signs Vital Signs Date Time Temp Pulse Resp B/P Pulse Ox O2 Delivery O2 Flow Rate FiO2 11/12/16 10:04 96.5 72 14 163/73 99 Room Air Height (Feet): 5 Height (Inches): 9.00 Telemetry Rhythm: Sinus Rhythm Cardiovascular (brief) Cardiac Brief: FOUND: peripheral edema, regular rate, regular rhythm Cardiovascular Peripheral Pulses: 2+: Dorasalis Pedis (L), Dorsalis Pedis (R), Radial (L), Radial (R) Edema: 1+: Leg (L), Leg (R) Abdomen (brief) Abdominal Brief: FOUND: BS normo active x4, soft, tender (To upper quadrants with palpation) (brief) Comments Pt has urostomy, stoma pink, without drainage or erthema Integumentary (brief) Integumentary Brief: FOUND: dry, pink, warm Neurologic (brief) Neurological Brief: FOUND: cranial 2-12 intact Neurologic RN Documented GCS Eye Opening: Verbal: Motor: Total: Psychiatric (brief) FOUND: alert, oriented Laboratory Laboratory Tests Test 11/12/16 07:41 11/12/16 07:51 11/12/16 09:11 11/12/16 09:15 White Blood Count 12.1T/MM3 Red Blood Count 5.41M/MM3 Hemoglobin 15.1GM/DL Hematocrit 45.3% Mean Corpuscular Volume 83.7UM3 Mean Corpuscular Hemoglobin 27.9UUG Mean Corpuscular Hemoglobin Concent 33.3GM/DL RDW Standard Deviation 47.0FL Platelet Count 255T/MM3 Mean Platelet Volume 8.5UM3 Immature Granulocyte % (Auto) % Neutrophils (%) (Auto) % Lymphocytes (%) (Auto) % Monocytes (%) (Auto) % Eosinophils (%) (Auto) % Basophils (%) (Auto) % Absolute Immature Granulocyte (auto T/MM3 Absolute Neutrophils (auto) T/MM3 Absolute Lymphocytes (auto) T/MM3 Absolute Monocytes (auto) T/MM3 Absolute Eosinophils (auto) T/MM3 Absolute Basophils (auto) T/MM3 Neutrophils % (Manual) 91.0% Band Neutrophils % 3.0% Lymphocytes % (Manual) 4.0% Monocytes % (Manual) 2.0% Absolute Neutrophils (Manual) 11.0T/MM3 Band Neutrophils # 0.4T/MM3 Lymphocytes # (Manual) 0.5T/MM3 Monocytes # (Manual) 0.2T/MM3 Red Cell Morphology Comment Normal Prothromb Time International Ratio 1.07 Turbidity < 20 Sodium Level 142MEQ/L Potassium Level 5.1MEQ/L Chloride Level 100MEQ/L Carbon Dioxide Level 26MEQ/L Anion Gap 16MEQ/L Blood Urea Nitrogen 23.0MG/DL Creatinine 1.2MG/DL Glomerular Filtration Rate Calc 59 BUN/Creatinine Ratio 19RATIO Glucose Level 209MG/DL Calculated Osmolality 283MOSM/KG Calcium Level 10.0MG/DL Icterus Index < 2 Troponin I < 0.012ng/ml OZ-Mnz-F-Type Natriuretic Peptide 49PG/ML Chemistry Specimen Hemolysis < 15 Lipase 105U/L Plasma Lactate 2.0MMOL/L Procalcitonin < 0.05NG/ML Urine Collection Type Urine Color Yellow Urine Turbidity Sl cloudy Urine pH 6.0 Urine Specific [place] 1.020 Urine Protein 1+ Urine Glucose (UA) Negative Urine Ketones Trace Urine Blood Trace-intact Urine Nitrite Positive Urine Bilirubin Negative Urine Urobilinogen 1.0EU/DL Urine Leukocyte Esterase 2+ Urine RBC 5-10/HPF Urine WBC 20-30/HPF Urine Squamous Epithelial Cells 0-5 Urine Bacteria 3+ Urine Hyaline Casts 1-3/LPF Urine Mucus Present Urine Culture Indicated Cult reflexed &setup Sepsis Diagnostic Criteria Sepsis Confirmed/Suspected Infection: Yes SIRS Criteria: Temp<=96.8 or >=100.4, WBC >=12,000 or <=4,000, BS >120 in non- diabetic Assessment & Plan Problems: (1) SIRS (systemic inflammatory response syndrome) Status: Acute (2) UTI (urinary tract infection) Status: Acute Qualifiers: Urinary tract infection type: acute cystitis Hematuria presence: with hematuria Qualified Codes: N30.01 - Acute cystitis with hematuria (3) Acute hyperglycemia Status: Acute Assessment & Plan: Present on admission, glucose was 209 in absence of diabetes (4) Heartburn Status: Acute (5) Leukocytosis Status: Acute Qualifiers: Leukocytosis type: bandemia Qualified Codes: D72.825 - Bandemia (6) Hypertension Status: Chronic Qualifiers: Hypertension type: essential hypertension Qualified Codes: I10 - Essential (primary) hypertension (7) Hyperlipemia Status: Chronic Qualifiers: Hyperlipidemia type: unspecified Qualified Codes: E78.5 - Hyperlipidemia, unspecified (8) Presence of urostomy Status: Chronic (9) 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 We will repeat a lactate this afternoon per sepsis protocol. Initial Lactate and pro calcitonin in ER was negative. Given concern as expressed by Dr. Thayer regarding recent Port-A-Cath flush, will treat aggressively. Continue with Levaquin and Vancomycin IV. Blood cultures and urine culture ,pending. Will consult pharmacy for vancomycin dosing Will continue to wait for UA sensitivity, continue on above antimicrobial coverage We will obtain serial Troponins every 6hs x 3 to rule out cardiac infarct or ischemia. Telemetry monitoring. For reduction of heartburn symptoms we will start Carafate 1gm prior to meals and bedtime. Also will give TUMS PRN and Protonix 40mg IV twice daily. Thorazine as needed for acute Hiccups Continue home medications including Benazepril 5mg daily and Lipitor 10mg at bedtime. Will continue with SCDs to bilateral lower extremity for DVT prophylaxis We will repeat CBC and BMP labs in the morning, to follow blood counts, renal function and electrolytes Again, patient does wish to be a full code and this orders written Will discuss further plan with attending, Dr. Buenrostro. At time of discharge medical care will return to primary care provider, Dr. Copeland. DVT Prophylaxis: SCD'S Code Status Full Code Hospital Course Summary Disclaimer The hospital course summary below is not to be considered part of the above Progress Note. Hospital Course Summary 11/12- Admission Admit as outpatient observation for SIRS, UTI, further chest pain r/o under the care of Dr Buenrostro Due to his hyperglycemia in the ER and no diagnosis of diabetes, we will obtain a HgbA1C and blood glucose monitoring PRN. We will repeat a lactate this afternoon per sepsis protocol. Initial Lactate and pro calcitonin in ER was negative. Given concern as expressed by Dr. Thayer regarding recent Port-A-Cath flush, will treat aggressively. Continue with Levaquin and Vancomycin IV. Blood cultures and urine culture ,pending. Will consult pharmacy for vancomycin dosing Will continue to wait for UA sensitivity, continue on above antimicrobial coverage We will obtain serial Troponins every 6hs x 3 to rule out cardiac infarct or ischemia. Telemetry monitoring. For reduction of heartburn symptoms we will start Carafate 1gm prior to meals and bedtime. Also will give TUMS PRN and Protonix 40mg IV twice daily. Thorazine as needed for acute Hiccups Continue home medications including Benazepril 5mg daily and Lipitor 10mg at bedtime. Will continue with SCDs to bilateral lower extremity for DVT prophylaxis We will repeat CBC and BMP labs in the morning, to follow blood counts, renal function and electrolytes Again, patient does wish to be a full code and this orders written Will discuss further plan with attending, Dr. Buenrostro. At time of discharge medical care will return to primary care provider, Dr. Copeland. FITO BUENROSTRO MD 11/12/16 4002: Past Medical History Current Medications Home Meds Reported Medications Benazepril HCl (Benazepril HCl) 5 Mg Tablet, 1 TAB PO DAILY, TAB 11/12/16 Cholecalciferol (Vitamin D3) (Vitamin D-3) 2,000 Unit Capsule, 1 TAB PO DAILY 05/29/15 Atorvastatin Calcium (Atorvastatin Calcium) 10 Mg Tablet, 1 TAB PO HS, TAB 05/28/15 Allergies: Coded Allergies: No Known Allergies (Unverified , 11/12/16) Assessment & Plan Plan/Intensity of Service Have independently interviewed and examined pt. Chart reviewed. Case discussed with ED physician and my BIOINFORMATICS SCIENTIST. Care plan developed with my supervision; agree with above. Started feeling rough yesterday. Fullness to upper ab/lower chest. More acid and burping. Not feeling palpitations, but chest full and heavy. Nauseated-not feeling like eating. Little food intake. No diarrhea; typically regular (daily) but had no stool yesterday. No f/c. Denies sinus pressure or pain. No skin rashes, lesions, or itching. Lungs: decreased, no distress CV: regular AB: soft nt/nd BS decreased MSE: awake alert appropriate Plan; OBS. Vanco and levofloxacin for antimicrobial coverage. Protonix, Carafate and Tums for acid symptoms; doubt cardiac etiology, but will check troponin serially.Cultures taken from port - hold on using. SCD. Monitor lab. LEA GARDNER APRN Nov 12, 2016 11:31 FITO BUENROSTRO MD Nov 12, 2016 15:52
[2016-11-12] MEDS ORDERED: CALCIUM CARBONATE 500mg Chewable TAB PO PRN (13:30)
[2016-11-12] MEDS ORDERED: ACETAMINOPHEN 325 MG TABLET PO PRN (13:30)
[2016-11-12] MEDS ORDERED: PRN ORDERS MC (13:30)
[2016-11-12] MEDS ORDERED: MILK OF MAGNESIA 30 ML SUSP PO PRN (13:30)
[2016-11-12] MEDS ORDERED: MAG-AL + SIM LIQUID 30 ML UDC PO PRN (13:30)
[2016-11-12] MEDS ORDERED: BISACODYL 10 MG SUPPOSITORY RECTALLY PRN (13:30)
[2016-11-12 14:24] LABS: LACTATE - LACTIC ACID 1.4 MMOL/L (0.6-2.2)
[2016-11-12] MEDS: CHLORPROMAZINE IV PRN (14:29)
[2016-11-12] MEDS: NORMAL SALINE IV PRN (14:29)
[2016-11-12 15:08] VITALS: PULSE 72
[2016-11-12 16:02] VITALS: BP 134/89; PULSE 101; RESP 16; TEMP 97.2; O2SAT 94
[2016-11-12] MEDS ORDERED: VANCOMYCIN 1,250 MG in NORMAL SALINE 250 ML IV ONE (18:00)
--- NOTE | 2016-11-12 19:41 | NUR ---
admit Pt A/O x3, V/S stable on RA. Pt denies pain but states heartburn, PRN meds given to help relieve this. After multiple trys, pt states discomfort has lessoned but still there. Hiccups new this afternoon, N.O. after talking with dr Buenrostro for IV, has helped but they keep coming back. Pt ambulating well in room, does state he is worn out, did explain to call if he needs help at all to bathroom. Pt has urostomy, takes care of himself, have let him know we are here if needs assistance.
[2016-11-12] MEDS: --POM--ATORVASTATIN 10 MG TABLET PO SCH (21:41)
[2016-11-12] MEDS: PANTOPRAZOLE 40mg INJECTION IV SCH (21:44)
[2016-11-13] VITALS (7 sets, daily range): BP systolic 117–138; BP diastolic 69–82; PULSE 94–110; RESP 14–22; TEMP 96.1–98.1; O2SAT 93–95
[2016-11-13] MEDS: NORMAL SALINE 1,000 ML IV SCH ×3 (03:49→17:06)
[2016-11-13 04:45] LABS: BASOPHILS % (AUTO) 0.1 % (0-2); EOSINOPHILS % (AUTO) 0.1 % (0-4); HCT - HEMATOCRIT 40.5 % (41-53); HGB - HEMOGLOBIN 13.4 GM/DL (13.5-17.5); IMMATURE GRANULOCYTE # (AUTO) 0.02 T/MM3 (0.00-0.03); IMMATURE GRANULOCYTE % (AUTO) 0.1 % (0.0-0.5); LYMPHOCYTES # (AUTO) 1.3 T/MM3 (1-4.8); LYMPHOCYTES % (AUTO) 9.5 % (23-45); MEAN CORPUSCULAR HGB 27.9 UUG (26-34); MEAN CORPUSCULAR HGB CONC(MCHC 33.1 GM/DL (31-37); MEAN CORPUSCULAR VOLUME 84.2 UM3 (80-100); MEAN PLATELET VOLUME 8.5 UM3 (9.4-12.4); MONOCYTES # (AUTO) 0.8 T/MM3 (0-0.8); MONOCYTES % (AUTO) 5.5 % (0-9.0); NEUTROPHILS #(AUTO)-ABSOLUTE 11.9 T/MM3 (1.8-7.7); NEUTROPHILS % (AUTO) 84.7 % (33-66); RED BLOOD COUNT 4.81 M/MM3 (4.50-5.90)
[2016-11-13 04:59] LABS: ALBUMIN 3.4 G/DL (3.5-5.0); ALBUMIN/GLOBULIN RATIO 1.2 RATIO (1.1-2.2); ALKALINE PHOSPHATASE 71 U/L (38-126); ALT (SGPT) 31 U/L (21-72); ANION GAP 10 MEQ/L (5-15); AST (SGOT) 18 U/L (17-59); BUN/CREATININE RATIO 20 RATIO (6-26); CALCIUM 8.8 MG/DL (8.4-10.2); CHLORIDE 107 MEQ/L (98-107); CO2 - CARBON DIOXIDE 23 MEQ/L (22-30); CREATININE 1.1 MG/DL (0.8-1.5); GLOMERULAR FILTRATION RATE 65; GLUCOSE 150 MG/DL (75-110); MAGNESIUM 1.9 MG/DL (1.6-2.3); POTASSIUM 4.4 MEQ/L (3.6-5); SODIUM 140 MEQ/L (134-144); TOTAL PROTEIN 6.2 G/DL (6.3-8.2)
--- NOTE | 2016-11-13 05:54 | NUR ---
Status Pt alert and oriented x3. VS stable on RA. Pt continues to have discomfort of heart burn and some hiccups occasionally. Troponin remains normal. Pt slept off and on during the night. WBC up to 14.0, no other changes or concerns. Will continue to monitor.
[2016-11-13] MEDS ORDERED: VANCOMYCIN 1,000 MG in NORMAL SALINE 250 ML IV SCH (06:00)
[2016-11-13] MEDS: SUCRALFATE 1 G TABLET PO SCH ×4 (06:21→20:26)
--- NOTE | 2016-11-13 08:00 | NUR ---
EOS Patient is resting in bed. Dr. Arellano at bedside. Patient questions answered. Son is at bedside. Calls daughter for updates.
--- NOTE | 2016-11-13 08:00 | NUR ---
Received report Patient is resting in no apparent distress. NS running at 100ml/hr to RFA PIV. PAC is activated but is not currently in use.
[2016-11-13] MEDS: BENAZEPRIL 10 MG PO SCH (09:00)
[2016-11-13] MEDS: CHLORPROMAZINE IV PRN (10:04)
[2016-11-13] MEDS: NORMAL SALINE IV PRN (10:04)
[2016-11-13] MEDS: PANTOPRAZOLE 40mg INJECTION IV SCH ×2 (10:10→20:26)
[2016-11-13] MEDS ORDERED: FLUCONAZOLE 150 MG TABLET PO ONE (10:15)
--- NOTE | 2016-11-13 10:18 | PNPDOC ---
Subjective Date DATE: 11/13/16 TIME: 10:05 Subjective F/U: Leukocytosis, UTI, Heartburn, Hiccups Doing great other than continued severe heartburn and bothersome hiccups. No mouth pain or pain with swallowing. Denies nausea or ab pain. No stomatitis. Breathing feels well-not noticing SOA, cough, congestion or problems breathing. No sinus congestion or drainage. Not feeling palpitations. No muscle aches or pains. Not unsteady when up this morning. Didn't have stool this am, but not feeling crampy or bloated in abdomen. Patient and family concerned about his persistent and severe heartburn symptoms. Objective Vital Signs Vital signs Vital Signs Date Time Temp Pulse Resp B/P Pulse Ox O2 Delivery O2 Flow Rate FiO2 11/13/16 07:28 97.9 94 18 138/82 94 Room Air Telemetry Rhythm: Sinus Rhythm Height (Feet): 5 Height (Inches): 9.00 Weight (Kilograms): 95.100 General General Appearance: Alert, Obese, Orientated x 3, Well Nourished, Well Developed, Cooperative, Looks Stated Age Eyes (Brief) Eyes: FOUND: EOMI, PERRL, NOT FOUND: scleral icterus ENMT (Brief) ENMT: FOUND: hearing intact, mucosa moist (No thrush ) Neck (Brief) Neck: FOUND: midline, NOT FOUND: nuchal rigidity, spasm Respiratory (Brief) Respiratory: FOUND: clear all zheng, equal bilaterally, NOT FOUND: rales, wheezes Cardiovascular (Brief) Cardiac: FOUND: regular rate, regular rhythm, NOT FOUND: pedal edema Abdomen (Brief) Abdominal: FOUND: BS normo active x4, soft, NOT FOUND: distended, tender Extremities (Brief) Extremity : Side: Bilateral Extremity: leg Extremity Finding: FOUND: other (SCD ), NOT FOUND: edema Musculoskeletal (Brief) Musculoskeletal: FOUND: extremities move equally, NOT FOUND: deformity, loss of motion, spasm, tenderness Integumentary (Brief) Integumentary: FOUND: dry, warm Neurologic (Brief) Neurological: FOUND: cranial 2-12 intact, motor (Intact ) Psychiatric (Brief) Psychiatric: FOUND: alert, attentive, normal affect, oriented, other (Thoughts linear. Communicates well. ) Laboratory Laboratory Laboratory Tests 11/12/16 07:41 11/13/16 04:25 Laboratory Tests 11/12/16 07:41 11/13/16 04:25 Microbiology Microbiology Microbiology Date/Time Source Procedure Growth Status 11/12/16 09:21 Cath/Port/Line/Picc Blood Culture - Preliminary NO GROWTH AFTER 24 HOURS Resulted 11/12/16 09:18 Cath/Port/Line/Picc Blood Culture - Preliminary NO GROWTH AFTER 24 HOURS Resulted 11/12/16 09:52 Urine, Wade Indwelling Urine Culture - Preliminary Gram Negative Dani Resulted Sepsis Diagnostic Criteria Sepsis Confirmed/Suspected Infection: Yes SIRS Criteria: Temp<=96.8 or >=100.4, WBC >=12,000 or <=4,000, BS >120 in non- diabetic Assessment & Plan Problems: (1) SIRS (systemic inflammatory response syndrome) Status: Acute (2) UTI (urinary tract infection) Status: Acute Qualifiers: Urinary tract infection type: acute cystitis Hematuria presence: with hematuria Qualified Codes: N30.01 - Acute cystitis with hematuria (3) Leukocytosis Status: Acute Qualifiers: Leukocytosis type: bandemia Qualified Codes: D72.825 - Bandemia (4) Hiccups Status: Acute (5) Heartburn Status: Acute (6) Acute hyperglycemia Status: Acute Assessment & Plan: Present on admission, glucose was 209 in absence of diabetes (7) Hypertension Status: Chronic Qualifiers: Hypertension type: essential hypertension Qualified Codes: I10 - Essential (primary) hypertension (8) Hyperlipemia Status: Chronic Qualifiers: Hyperlipidemia type: unspecified Qualified Codes: E78.5 - Hyperlipidemia, unspecified (9) Presence of urostomy Status: Chronic (10) 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 Continue with antibiotics for coverage. Will give Diflucan 150mg x1 now to cover possible esophageal yeast causing heartburn pain. Discuss with Dr Vasquez about possible EGD. Thorazine as needed to help hiccups. Encourage ambulation. 1999 Reassessed pt Much better afternoon - felt things really improved at 1600. Not having the heartburn. Less hiccups. Has been out walking more and feeling stronger. Breathing well. No nausea. Eating well, but taking oral intake slowly. Dr Vasquez did see pt - are planning to hold on EGD for now. Case discussed with pt and family. Time spent with patient care 35 minutes. DVT Prophylaxis: SCD'S Code Status Full Code Hospital Course Summary Disclaimer The hospital course summary below is not to be considered part of the above Progress Note. Hospital Course Summary 11/12- Admission Admit as outpatient observation for SIRS, UTI, further chest pain r/o under the care of Dr Buenrostro Due to his hyperglycemia in the ER and no diagnosis of diabetes, we will obtain a HgbA1C and blood glucose monitoring PRN. We will repeat a lactate this afternoon per sepsis protocol. Initial Lactate and pro calcitonin in ER was negative. Given concern as expressed by Dr. Thayer regarding recent Port-A-Cath flush, will treat aggressively. Continue with Levaquin and Vancomycin IV. Blood cultures and urine culture ,pending. Will consult pharmacy for vancomycin dosing Will continue to wait for UA sensitivity, continue on above antimicrobial coverage We will obtain serial Troponins every 6hs x 3 to rule out cardiac infarct or ischemia. Telemetry monitoring. For reduction of heartburn symptoms we will start Carafate 1gm prior to meals and bedtime. Also will give TUMS PRN and Protonix 40mg IV twice daily. Thorazine as needed for acute Hiccups Continue home medications including Benazepril 5mg daily and Lipitor 10mg at bedtime. Will continue with SCDs to bilateral lower extremity for DVT prophylaxis We will repeat CBC and BMP labs in the morning, to follow blood counts, renal function and electrolytes Again, patient does wish to be a full code and this orders written Will discuss further plan with attending, Dr. Buenrostro. At time of discharge medical care will return to primary care provider, Dr. Copeland. 11/13 Doing great other than continued severe heartburn and bothersome hiccups. No mouth pain or pain with swallowing. Denies nausea or ab pain. No stomatitis. Breathing feels well-not noticing SOA, cough, congestion or problems breathing. No sinus congestion or drainage. Not feeling palpitations. No muscle aches or pains. Not unsteady when up this morning. Didn't have stool this am, but not feeling crampy or bloated in abdomen. Patient and family concerned about his persistent and severe heartburn symptoms. \ Urine growing GN dani - check C/S. Continue with antibiotics for coverage. Will give Diflucan 150mg x1 now to cover possible esophageal yeast causing heartburn pain. Discuss with Dr Vasquez about possible EGD. Thorazine as needed to help hiccups. Encourage ambulation. 1999 Reassessed pt Much better afternoon - felt things really improved at 1600. Not having the heartburn. Less hiccups. Has been out walking more and feeling stronger. Breathing well. No nausea. Eating well, but taking oral intake slowly. Dr Vasquez did see pt - are planning to hold on EGD for now. FITO BUENROSTRO MD Nov 13, 2016 10:10
--- NOTE | 2016-11-13 10:25 | PNPDOC ---
Subjective Date DATE: 11/13/16 TIME: 09:03 Subjective Chest tightness improved but has a lot of heartburn (usually only gets heartburn if he eats [place]) - now it's much worse than usual. Had a stress test 5 yrs ago - neg. No dyspnea, nausea, sweating Painful frequent hiccups. Objective Vital Signs Vital signs Vital Signs Date Time Temp Pulse Resp B/P Pulse Ox O2 Delivery O2 Flow Rate FiO2 11/13/16 07:28 97.9 94 18 138/82 94 Room Air Telemetry Rhythm: Sinus Rhythm Height (Feet): 5 Height (Inches): 9.00 Weight (Kilograms): 95.100 General General Appearance: Alert, Orientated x 3, No Acute Distress Comments frequent hiccups Respiratory (Brief) Respiratory: FOUND: clear all zheng, equal bilaterally Cardiovascular (Brief) Cardiac: FOUND: regular rate, regular rhythm Abdomen (Brief) Abdominal: FOUND: BS normo active x4, soft, NOT FOUND: tender Extremities (Brief) Extremity : Side: Bilateral Extremity Finding: NOT FOUND: edema Musculoskeletal (Brief) Musculoskeletal: NOT FOUND: tenderness (calves nontender) Integumentary (Brief) Integumentary: FOUND: dry, pink, warm Psychiatric (Brief) Psychiatric: FOUND: alert, attentive, normal affect, oriented Laboratory Laboratory Laboratory Tests 11/12/16 07:41 11/13/16 04:25 Laboratory Tests 11/12/16 07:41 11/13/16 04:25 Microbiology Microbiology Microbiology Date/Time Source Procedure Growth Status 11/12/16 09:21 Cath/Port/Line/Picc Blood Culture - Preliminary CULTURE INITIATED - RESULTS PENDING Resulted 11/12/16 09:18 Cath/Port/Line/Picc Blood Culture - Preliminary CULTURE INITIATED - RESULTS PENDING Resulted 11/12/16 09:52 Urine, Wade Indwelling Urine Culture - Preliminary Gram Negative Dani Resulted Sepsis Diagnostic Criteria Sepsis Confirmed/Suspected Infection: Yes SIRS Criteria: Temp<=96.8 or >=100.4, WBC >=12,000 or <=4,000, BS >120 in non- diabetic Assessment & Plan Problems: (1) SIRS (systemic inflammatory response syndrome) Status: Acute (2) UTI (urinary tract infection) Status: Acute Qualifiers: Urinary tract infection type: acute cystitis Hematuria presence: with hematuria Qualified Codes: N30.01 - Acute cystitis with hematuria (3) Acute hyperglycemia Status: Acute Assessment & Plan: Present on admission, glucose was 209 in absence of diabetes (4) Heartburn Status: Acute (5) Leukocytosis Status: Acute Qualifiers: Leukocytosis type: bandemia Qualified Codes: D72.825 - Bandemia (6) Hypertension Status: Chronic Qualifiers: Hypertension type: essential hypertension Qualified Codes: I10 - Essential (primary) hypertension (7) Hyperlipemia Status: Chronic Qualifiers: Hyperlipidemia type: unspecified Qualified Codes: E78.5 - Hyperlipidemia, unspecified (8) Presence of urostomy Status: Chronic (9) Port-a-cath in place Status: Chronic (10) History of bladder cancer Status: Resolved (11) History of prostate cancer Status: Resolved Plan/Intensity of Service Possible UTI - C&S pending. Prelim. culture shows gram neg. rods. Leukocytosis increased to 14 despite being on Levaquin and Vancomycin. Initial lactate of 2, trended down to 1.4 (poss. severe sepsis syndrome). HR increased 90-100+. Chest tightness - improved, now with heartburn and intractable hiccups. PRNs available and I asked the nurse to administer. Possible port infection - cx neg at 24 hrs. Discussed in depth with patient and , daughter, and son. Also discussed with Dr. Buenrostro and RN. DVT Prophylaxis: SCD'S Code Status Full Code Hospital Course Summary Disclaimer The hospital course summary below is not to be considered part of the above Progress Note. Hospital Course Summary 11/12- Admission Admit as outpatient observation for SIRS, UTI, further chest pain r/o under the care of Dr Buenrostro Due to his hyperglycemia in the ER and no diagnosis of diabetes, we will obtain a HgbA1C and blood glucose monitoring PRN. We will repeat a lactate this afternoon per sepsis protocol. Initial Lactate and pro calcitonin in ER was negative. Given concern as expressed by Dr. Thayer regarding recent Port-A-Cath flush, will treat aggressively. Continue with Levaquin and Vancomycin IV. Blood cultures and urine culture ,pending. Will consult pharmacy for vancomycin dosing Will continue to wait for UA sensitivity, continue on above antimicrobial coverage We will obtain serial Troponins every 6hs x 3 to rule out cardiac infarct or ischemia. Telemetry monitoring. For reduction of heartburn symptoms we will start Carafate 1gm prior to meals and bedtime. Also will give TUMS PRN and Protonix 40mg IV twice daily. Thorazine as needed for acute Hiccups Continue home medications including Benazepril 5mg daily and Lipitor 10mg at bedtime. Will continue with SCDs to bilateral lower extremity for DVT prophylaxis We will repeat CBC and BMP labs in the morning, to follow blood counts, renal function and electrolytes Again, patient does wish to be a full code and this orders written Will discuss further plan with attending, Dr. Buenrostro. At time of discharge medical care will return to primary care provider, Dr. Copeland. 11/13/16 Possible UTI - C&S pending. Prelim. culture shows gram neg. rods. Leukocytosis increased to 14 despite being on Levaquin and Vancomycin. Initial lactate of 2, trended down to 1.4 (poss. severe sepsis syndrome). HR increased 90-100+. Chest tightness - improved, now with heartburn and intractable hiccups. PRNs available and I asked the nurse to administer. Possible port infection - cx neg at 24 hrs. Discussed in depth with patient and , daughter, and son. Also discussed with Dr. Buenrostro and RN. ESTER BAER FOAMITE MIXER Nov 13, 2016 09:06
--- NOTE | 2016-11-13 11:00 | NUR ---
CM CM IN ROOM EXPLAINED ROLL. CONTACT INFORMATION GIVEN TO PT AND . PT LIVES AT HOME WITH AND DENIES NEEDS.
--- NOTE | 2016-11-13 12:58 | CONSPD ---
ARTURO BARRERA LAY OUT MACHINE OPERATOR 11/13/16 1248: Consultation Info Date DATE: 11/13/16 TIME: 12:45 Date of Consultation: Nov 13, 2016 Attending Physician: Alejandro Buenrostro M.D. Reason for Consultation: bladder cancer HPI - Adult Date DATE: 11/13/16 TIME: 12:45 General Chief Complaint: Chest tightness History of Present Illness Well-known patient to Dr. Karimi with history of bladder cancer diagnosed May 2015, status post neoadjuvant chemotherapy, followed by radical cystectomy. He is currently on observation. Also was noted to have prostate carcinoma found on the radical cystectomy, with a [place] score of 6, 5% of the prostate without lymphovascular invasion. PSA is less than 0.1 on continued follow-up. He was admitted to [facility] yesterday morning with complaint of chest pressure, tightness, frequent heartburn, and hiccups. Cardiology workup negative. Preliminary evidence of possible sepsis; did have evidence of UTI and is currently on Levaquin and vancomycin. Urine culture and blood cultures are pending. At time of intake, patient reclining in hospital bed, at bedside. He is being treated for the heartburn and hiccups. Feels symptoms have decreased, but heartburn and hiccups persist intermittently. He denies fever, chills, headache , vision changes, no cough, or shortness of air. Points to upper sternal area and states that's where he notices the heartburn. He denies nausea or vomiting. He is voiding normally, states last BM was 2 days ago, normal Past Medical History Past Medical History Hx of Pneumonia Bladder and Prostrate Cancer- Resolved HTN HLD Cataracts Surgical History Patient's Surgical History: Cholecystecomy Inguinal Hernia repair Stoma Hernia Repair Port-a-Cath insertion (06/2015) Cystectomy with urostomy Current Medications Home Meds Active Scripts Cephalexin (Cephalexin) 500 Mg Tablet, 1 TAB PO TID for 7 Days, #21 TAB Start on the morning of 11/15/2016 Prov:VIDAL CHIANG MD 11/14/16 Omeprazole (Omeprazole) 20 Mg Capsule.dr, 20 MG PO ACB for 14 Days, #14 CAP Take 1 capsule, by mouth, one time a day (before breakfast). Prov:VIDAL CHIANG MD 11/14/16 Reported Medications Benazepril HCl (Benazepril HCl) 5 Mg Tablet, 1 TAB PO DAILY, TAB 11/12/16 Cholecalciferol (Vitamin D3) (Vitamin D-3) 2,000 Unit Capsule, 1 TAB PO DAILY 05/29/15 Atorvastatin Calcium (Atorvastatin Calcium) 10 Mg Tablet, 1 TAB PO HS, TAB 05/28/15 Allergies: Coded Allergies: No Known Allergies (Unverified , 11/12/16) Family History Family History: Father positive for CAD Mother positive for liver cirrhosis Maternal Uncle positive for Pancreatic Cancer Maternal Aunt positive for Breast Cancer Social History Smoking Status: Never smoker Substance Use Type: does not use Alcohol Intake: none Marital Status: Advance Directives: Yes Full Code, No DPOA for Healthcare Only Review of Systems Constitutional: DENIES: chills, fever, weight loss Eyes Vision: DENIES: vision changes ENMT Mouth/Throat: DENIES: sore throat Cardiovascular chest pain (anterior mid/upper sternal area), DENIES: dyspnea on exertion Rhythm/Rate: DENIES: palpitations Vascular: DENIES: pedal edema Pulmonary Respiratory: DENIES: cough, dyspnea GI Upper Abdomen: heartburn/indigestion, DENIES: hematemesis, nausea, vomiting Lower Abdomen: DENIES: blood in stool, constipation, diarrhea General: other (has urostomy), DENIES: burning, polyuria Musculoskeletal General: DENIES: edema, joint pain Integumentary Skin: DENIES: itching, rash Endocrine DENIES: heat/cold intolerance Hematologic/Lymphatic DENIES: frequent nosebleeds, lymphadenopathy Physical Exam General General Nourishment: well nourished, well developed General Body Habitus: well groomed Vital Signs Vital Signs Date Time Temp Pulse Resp B/P Pulse Ox O2 Delivery O2 Flow Rate FiO2 11/13/16 10:54 94 18 11/13/16 07:28 97.9 138/82 94 Room Air Height (Feet): 5 Height (Inches): 9.00 Telemetry Rhythm: Sinus Rhythm Eyes Brief: FOUND: EOMI, PERRL, NOT FOUND: scleral icterus ENMT Brief: FOUND: mucosa moist, NOT FOUND: pharnyx erythema Neck Brief: NOT FOUND: adenopathy, tenderness Respiratory Brief: FOUND: clear all zheng, equal bilaterally, NOT FOUND: wheezes Cardiovascular (brief) Cardiac Brief: FOUND: regular rate, regular rhythm, NOT FOUND: pedal edema Abdomen (brief) Abdominal Brief: FOUND: BS normo active x4, other (urostomy patent with clear yellow urine.), soft, NOT FOUND: hepatosplenomegaly, tender Lymphatic (brief) Lymphatic Brief: NOT FOUND: adenopathy Musculoskeletal (brief) Musculoskeletal Brief: FOUND: extremities move equally, NOT FOUND: loss of motion, tenderness Integumentary (brief) Integumentary Brief: FOUND: dry, warm, NOT FOUND: rash Neurologic (brief) Neurological Brief: FOUND: cranial 2-12 intact, NOT FOUND: motor (no acute motor deficit) Neurologic RN Documented GCS Eye Opening: Verbal: Motor: Total: Psychiatric (brief) FOUND: alert, attentive, normal affect, oriented, other (mildly anxious-"why did I get infection") Laboratory Laboratory Tests Test 11/12/16 07:23 11/12/16 07:41 11/12/16 07:51 11/12/16 09:11 Hemoglobin A1c 6.4% White Blood Count 12.1T/MM3 Red Blood Count 5.41M/MM3 Hemoglobin 15.1GM/DL Hematocrit 45.3% Mean Corpuscular Volume 83.7UM3 Mean Corpuscular Hemoglobin 27.9UUG Mean Corpuscular Hemoglobin Concent 33.3GM/DL RDW Standard Deviation 47.0FL Platelet Count 255T/MM3 Mean Platelet Volume 8.5UM3 Immature Granulocyte % (Auto) % Neutrophils (%) (Auto) % Lymphocytes (%) (Auto) % Monocytes (%) (Auto) % Eosinophils (%) (Auto) % Basophils (%) (Auto) % Absolute Immature Granulocyte (auto T/MM3 Absolute Neutrophils (auto) T/MM3 Absolute Lymphocytes (auto) T/MM3 Absolute Monocytes (auto) T/MM3 Absolute Eosinophils (auto) T/MM3 Absolute Basophils (auto) T/MM3 Neutrophils % (Manual) 91.0% Band Neutrophils % 3.0% Lymphocytes % (Manual) 4.0% Monocytes % (Manual) 2.0% Absolute Neutrophils (Manual) 11.0T/MM3 Band Neutrophils # 0.4T/MM3 Lymphocytes # (Manual) 0.5T/MM3 Monocytes # (Manual) 0.2T/MM3 Red Cell Morphology Comment Normal Prothromb Time International Ratio 1.07 Turbidity < 20 Sodium Level 142MEQ/L Potassium Level 5.1MEQ/L Chloride Level 100MEQ/L Carbon Dioxide Level 26MEQ/L Anion Gap 16MEQ/L Blood Urea Nitrogen 23.0MG/DL Creatinine 1.2MG/DL Glomerular Filtration Rate Calc 59 BUN/Creatinine Ratio 19RATIO Glucose Level 209MG/DL Calculated Osmolality 283MOSM/KG Calcium Level 10.0MG/DL Icterus Index < 2 Troponin I < 0.012ng/ml [id number] Natriuretic Peptide 49PG/ML Chemistry Specimen Hemolysis < 15 Lipase 105U/L Plasma Lactate 2.0MMOL/L Procalcitonin < 0.05NG/ML Test 11/12/16 09:15 11/12/16 14:06 11/12/16 18:17 11/13/16 04:25 Urine Collection Type Urine Color Yellow Urine Turbidity Sl cloudy Urine pH 6.0 Urine Specific [place] 1.020 Urine Protein 1+ Urine Glucose (UA) Negative Urine Ketones Trace Urine Blood Trace-intact Urine Nitrite Positive Urine Bilirubin Negative Urine Urobilinogen 1.0EU/DL Urine Leukocyte Esterase 2+ Urine RBC 5-10/HPF Urine WBC 20-30/HPF Urine Squamous Epithelial Cells 0-5 Urine Bacteria 3+ Urine Hyaline Casts 1-3/LPF Urine Mucus Present Urine Culture Indicated Cult reflexed &setup Troponin I < 0.012ng/ml < 0.012ng/ml Plasma Lactate 1.4MMOL/L Chemistry Specimen Hemolysis 17 < 15 < 15 White Blood Count 14.0T/MM3 Red Blood Count 4.81M/MM3 Hemoglobin 13.4GM/DL Hematocrit 40.5% Mean Corpuscular Volume 84.2UM3 Mean Corpuscular Hemoglobin 27.9UUG Mean Corpuscular Hemoglobin Concent 33.1GM/DL RDW Standard Deviation 47.9FL Platelet Count 248T/MM3 Mean Platelet Volume 8.5UM3 Immature Granulocyte % (Auto) 0.1% Neutrophils (%) (Auto) 84.7% Lymphocytes (%) (Auto) 9.5% Monocytes (%) (Auto) 5.5% Eosinophils (%) (Auto) 0.1% Basophils (%) (Auto) 0.1% Absolute Immature Granulocyte (auto 0.02T/MM3 Absolute Neutrophils (auto) 11.9T/MM3 Absolute Lymphocytes (auto) 1.3T/MM3 Absolute Monocytes (auto) 0.8T/MM3 Absolute Eosinophils (auto) 0.0T/MM3 Absolute Basophils (auto) 0.0T/MM3 Turbidity < 20 Sodium Level 140MEQ/L Potassium Level 4.4MEQ/L Chloride Level 107MEQ/L Carbon Dioxide Level 23MEQ/L Anion Gap 10MEQ/L Blood Urea Nitrogen 22.0MG/DL Creatinine 1.1MG/DL Glomerular Filtration Rate Calc 65 BUN/Creatinine Ratio 20RATIO Glucose Level 150MG/DL Calculated Osmolality 275MOSM/KG Calcium Level 8.8MG/DL Magnesium Level 1.9MG/DL Total Bilirubin 0.80MG/DL Icterus Index < 2 Aspartate Amino Transf (AST/SGOT) 18U/L Alanine Aminotransferase (ALT/SGPT) 31U/L Alkaline Phosphatase 71U/L Total Protein 6.2G/DL Albumin 3.4G/DL Globulin 2.8G/DL Albumin/Globulin Ratio 1.2RATIO Impression/Recommendation Impression 1. 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 Currently on observation and no evidence of recurrence. 2. GERD/reflux/hiccups. 3. Possible sepsis-UTI- await final urine culture results. Preliminary blood cultures are negative. Recommendation Continue supportive care, antibiotics per hospitalist, and close monitoring of counts. Active listened;discussed sometimes difficult to specifically say why has gotten infection. Has two sites- PAC and ostomy that potentially make it easier for organisms to enter. Reviewed infection precautions of good handwashing, good clean technique with ostomy bag changes, avoid people with fevers. WILY KARIMI 11/13/16 1340: Past Medical History Current Medications Home Meds Active Scripts Cephalexin (Cephalexin) 500 Mg Tablet, 1 TAB PO TID for 7 Days, #21 TAB Start on the morning of 11/15/2016 Prov:VIDAL CHIANG MD 11/14/16 Omeprazole (Omeprazole) 20 Mg Capsule.dr, 20 MG PO ACB for 14 Days, #14 CAP Take 1 capsule, by mouth, one time a day (before breakfast). Prov:VIDAL CHIANG MD 11/14/16 Reported Medications Benazepril HCl (Benazepril HCl) 5 Mg Tablet, 1 TAB PO DAILY, TAB 11/12/16 Cholecalciferol (Vitamin D3) (Vitamin D-3) 2,000 Unit Capsule, 1 TAB PO DAILY 05/29/15 Atorvastatin Calcium (Atorvastatin Calcium) 10 Mg Tablet, 1 TAB PO HS, TAB 05/28/15 Allergies: Coded Allergies: No Known Allergies (Unverified , 11/12/16) Physical Exam Laboratory Item Value Date Time White Blood Count 12.1 T/MM3 H # 11/12/16 0741 White Blood Count 14.0 T/MM3 H 11/13/16 0425 Hemoglobin 15.1 GM/DL 11/12/16 0741 Hemoglobin 13.4 GM/DL L # 11/13/16 0425 Platelet Count 255 T/MM3 11/12/16 0741 Platelet Count 248 T/MM3 11/13/16 0425 Neutrophils (%) (Auto) 84.7 % H 11/13/16 0425 Neutrophils % (Manual) 91.0 % H 11/12/16 0741 Creatinine 1.1 MG/DL 11/13/16 0425 Calcium Level 8.8 MG/DL # 11/13/16 0425 Total Bilirubin 0.80 MG/DL 11/13/16 0425 Aspartate Amino Transf (AST/SGOT) 18 U/L 11/13/16 0425 Alanine Aminotransferase (ALT/SGPT) 31 U/L 11/13/16 0425 Alkaline Phosphatase 71 U/L 11/13/16 0425 Procalcitonin < 0.05 NG/ML 11/12/16 0911 Plasma Lactate 1.4 MMOL/L 11/12/16 1406 Plasma Lactate 2.0 MMOL/L 11/12/16 0911 Microbiology Gram negative mamie in urine Radiology [place], [place] [address] Name: ANNAMARIE DAMON Eusebio Unit #: [id number] Signed Page 1 of 1 DIAGNOSTIC IMAGING REPORT Report #: [id number] Dictated By: LYLE COPELAND MD 11/12/16820 Signed date/time: 11/12/16822 Transcribed By: TRANSCRIPT [employer] 11/12/16820 cc: [address] [place] [id number] [phone] Dictated By: LYLE COPELAND MD 11/12/16820 Signed date/time: 11/12/16822 Transcribed By: [employer]CRIPT [employer] 11/12/16820 cc: Name: ANNAMARIE DAMON Unit #: [id number] : 1940 Sex: M Loc / Svc: ED Admit Date: Signed Page 1 of 1 Printed: [~ rep prt dt last] [~ rep prt tm last] Discharge Date: DIAGNOSTIC IMAGING REPORT Report #: [id number] [~ rep ct labl] DATE OF EXAM: 11/12/16 ORDERING DOCTOR: CARRIE JOSEPH MD TYPE OF EXAM: CHEST 1 VIEW REASON FOR EXAM: CHEST TIGHTNESS Indication: ITS.REASON: CHEST TIGHTNESS PROCEDURE: CHEST 1 VIEW: Encounter: Initial Comparison: Chest CT dated September 22, 2016 FINDINGS: The lungs are mildly hypoinflated, but clear. There is no abnormal airspace opacity, pleural effusion or pneumothorax identified. Slight blunting of left costophrenic angle is due to pleural thickening or scarring seen on the comparison CT. The heart size, pulmonary vasculature and mediastinum are unchanged. Right IJ port. IMPRESSION: No acute cardiopulmonary abnormality. . Impression/Recommendation Impression Patient examined, chart reviewed, I participated in the development of the plan of care of this patient with Diya Barrera. Patient seen earlier this week and had Port-A-Cath flush. 2 days later he presented to the ER with marked leukocytosis , left shift, and feeling bad. Blood cultures and urine culture were obtained with the finding of a UTI. Patient has ileal conduit. Currently no evidence of recurrence of his bladder cancer. We'll treat infection and follow counts. ARTURO BARRERA APRN Nov 13, 2016 12:48 WILY KARIMI Nov 13, 2016 13:40
[2016-11-13] MEDS: --POM--ATORVASTATIN 10 MG TABLET PO SCH (20:26)
[2016-11-14] MEDS: NORMAL SALINE 1,000 ML IV SCH ×2 (03:49→11:22)
[2016-11-14] MEDS: SUCRALFATE 1 G TABLET PO SCH ×2 (05:24→11:55)
--- NOTE | 2016-11-14 06:20 | NUR ---
Status Pt urostomy draining well. Pt requested to be woken up q2.5hours to drain urostomy. Denies epigastric pain. States that incredible progress has been made in that regard. Pt able to sleep well. VSS on RA. IVF running as charted. Denies needs at this time. Will continue to monitor.
[2016-11-14 08:00] VITALS: BP 129/70; PULSE 86; PULSE 88; RESP 16; TEMP 96.8; O2SAT 93
--- NOTE | 2016-11-14 08:00 | NUR ---
RECEIVED REPORT PT IS ALERT AND ORIENTATED, CURRENTLY NS AT 100ML/HR IN RIGHT FOREARM PIV. RA. VITAL SIGNS STABLE. ON TELE SINUS RHYTHM FIRST DEGREE BLOCK.
[2016-11-14] MEDS: BENAZEPRIL 10 MG PO SCH (08:13)
[2016-11-14] MEDS: PANTOPRAZOLE 40mg INJECTION IV SCH (08:19)
[2016-11-14] MEDS ORDERED: CEFTRIAXONE 1 G in NORMAL SALINE 100 ML IV SCH (09:00)
--- NOTE | 2016-11-14 09:00 | NUR ---
PORT A CATH LEA BECKETT APRN OK'D TO USE PORT A CATH
[2016-11-14 10:16] LABS: HCT - HEMATOCRIT 33.8 % (41-53); HGB - HEMOGLOBIN 11.1 GM/DL (13.5-17.5); MEAN CORPUSCULAR HGB 28.2 UUG (26-34); MEAN CORPUSCULAR HGB CONC(MCHC 32.8 GM/DL (31-37); MEAN PLATELET VOLUME 8.4 UM3 (9.4-12.4); RED BLOOD COUNT 3.93 M/MM3 (4.50-5.90); WBC - WHITE BLOOD COUNT 6.9 T/MM3 (4.5-11.0)
--- NOTE | 2016-11-14 10:20 | NUR ---
CM CM VISITED PT AND SPOUSE. CM EXPLAINED ROLE AND PROVIDED CONTACT INFORMATION. PT IS HOPING TO GO HOME TODAY. PT DENIES NEEDS. PT IS AWARE TO CONTACT CM IF NEEDS ARISE.
[2016-11-14 10:24] LABS: ANION GAP 9 MEQ/L (5-15); BUN/CREATININE RATIO 17 RATIO (6-26); CALCIUM 8.2 MG/DL (8.4-10.2); CHLORIDE 109 MEQ/L (98-107); CO2 - CARBON DIOXIDE 23 MEQ/L (22-30); CREATININE 1.2 MG/DL (0.8-1.5); GLOMERULAR FILTRATION RATE 59; GLUCOSE 112 MG/DL (75-110); POTASSIUM 3.7 MEQ/L (3.6-5); SODIUM 141 MEQ/L (134-144)
[2016-11-14 10:36] LABS: EOSINOPHILS # (MANUAL) 0.1 T/MM3 (0-0.5); LYMPHOCYTES # (MANUAL) 0.6 T/MM3 (1-4.8); MONOCYTES # (MANUAL) 0.1 T/MM3 (0-0.8); NEUTROPHILS #(MANUAL)-ABSOLUTE 6.1 T/MM3 (1.8-7.7); TOTAL CELLS COUNTED 100 %
[2016-11-14 11:00] VITALS: PULSE 86; RESP 16; O2SAT 94
--- NOTE | 2016-11-14 13:28 | PNPDOC ---
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 Patient alert, oriented, states feeling much improved. Heartburn has resolved, no chest pain. Denies cough, shortness of air. No other complaints. General: No fever, no night sweats Eyes: No redness, no pain, no diplopia ENT: No mouth sores, no trouble swallowing Cardiac: No chest pain no palpitations Pulmonary: No cough, no shortness of breath, no wheezing Abdomen: No pain, no nausea vomiting, no diarrhea or constipation :urostomy Musculoskeletal: No arthritis, no myalgias Neurological: No headaches, no focal weakness Skin: No rash, no sores Psychiatric: No anxiety, no depression Objective Vital Signs Vital Signs 11/14/16 11/14/16 11/14/16 08:00 08:00 11:00 Temp 96.8 Pulse 86 88 86 Resp 16 16 B/P 129/70 Pulse Ox 93 94 O2 Delivery Room Air Room Air Height (Feet): 5 Height (Inches): 9.00 Weight (Kilograms): 95.600 General Alert, Orientated x 3, No Acute Distress Eyes (Brief) Eyes: NOT FOUND: PERRL, scleral icterus ENMT (Brief) ENMT: FOUND: mucosa moist, NOT FOUND: lesions Neck (Brief) Neck: NOT FOUND: adenopathy, tenderness Respiratory (Brief) Respiratory: FOUND: clear all zheng, equal bilaterally, NOT FOUND: wheezes Cardiovascular (Brief) Cardiac: FOUND: regular rate, regular rhythm, NOT FOUND: pedal edema Abdomen (Brief) Abdominal: FOUND: BS normo active x4, other (urostomy site patent, no sign symptoms of inflammation), soft, NOT FOUND: hepatosplenomegaly, tender Musculoskeletal (Brief) NOT FOUND: loss of motion, tenderness Integumentary (Brief) FOUND: dry, warm, NOT FOUND: rash Neurologic (Brief) FOUND: cranial 2-12 intact, NOT FOUND: motor (no acute motor deficit) Psychiatric (Brief) FOUND: alert, attentive, normal affect, oriented, other (Thoughts linear. Communicates well. ) Laboratory Laboratory Tests Test 11/14/16 10:05 White Blood Count 6.9T/MM3 Red Blood Count 3.93M/MM3 Hemoglobin 11.1GM/DL Hematocrit 33.8% Mean Corpuscular Volume 86.0UM3 Mean Corpuscular Hemoglobin 28.2UUG Mean Corpuscular Hemoglobin Concent 32.8GM/DL RDW Standard Deviation 47.6FL Platelet Count 190T/MM3 Mean Platelet Volume 8.4UM3 Neutrophils % (Manual) 89.0% Lymphocytes % (Manual) 8.0% Monocytes % (Manual) 1.0% Eosinophils % (Manual) 2.0% Absolute Neutrophils (Manual) 6.1T/MM3 Lymphocytes # (Manual) 0.6T/MM3 Monocytes # (Manual) 0.1T/MM3 Eosinophils # (Manual) 0.1T/MM3 Red Cell Morphology Comment Normal Turbidity < 20 Sodium Level 141MEQ/L Potassium Level 3.7MEQ/L Chloride Level 109MEQ/L Carbon Dioxide Level 23MEQ/L Anion Gap 9MEQ/L Blood Urea Nitrogen 20.0MG/DL Creatinine 1.2MG/DL Glomerular Filtration Rate Calc 59 BUN/Creatinine Ratio 17RATIO Glucose Level 112MG/DL Calculated Osmolality 275MOSM/KG Calcium Level 8.2MG/DL Icterus Index < 2 Chemistry Specimen Hemolysis < 15 Microbiology Microbiology Date/Time Source Procedure Growth Status 11/12/16 09:21 Cath/Port/Line/Picc Blood Culture - Preliminary NO GROWTH AFTER 48 HOURS Resulted 11/12/16 09:18 Cath/Port/Line/Picc Blood Culture - Preliminary NO GROWTH AFTER 48 HOURS Resulted 11/12/16 09:52 Urine, Wade Indwelling Urine Culture - Final Escherichia Coli Complete Sepsis Diagnostic Criteria Sepsis Confirmed/Suspected Infection: Yes SIRS Criteria: Temp<=96.8 or >=100.4, WBC >=12,000 or <=4,000, BS >120 in non- diabetic Assessment & Plan Assessment 1. 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 Currently on observation and no evidence of recurrence. 2. GERD/reflux/hiccups-resolved. 3. Possible sepsis-UTI. Urine culture results show Escherichia coli greater than 100,000 CFU/mL. Vancomycin DC'd and started on Rocephin today. Plan/Intensity of Service Discussed with Dr. Brooks. Plan D/C to home today with PO Cephalexin. Also given 2 weeks Omeprazole. Oncology okay with dismissal. Recommend see Dr. Karimi 7-10 days with labs day of appointment. Patient will call office to schedule f/u. Code Status Full Code Hospital Course Summary Disclaimer The visit summary below is not to be considered part of the above Progress Note. Hospital Course Summary 11/12- Admission Admit as outpatient observation for SIRS, UTI, further chest pain r/o under the care of Dr Buenrostro Due to his hyperglycemia in the ER and no diagnosis of diabetes, we will obtain a HgbA1C and blood glucose monitoring PRN. We will repeat a lactate this afternoon per sepsis protocol. Initial Lactate and pro calcitonin in ER was negative. Given concern as expressed by Dr. Thayer regarding recent Port-A-Cath flush, will treat aggressively. Continue with Levaquin and Vancomycin IV. Blood cultures and urine culture ,pending. Will consult pharmacy for vancomycin dosing Will continue to wait for UA sensitivity, continue on above antimicrobial coverage We will obtain serial Troponins every 6hs x 3 to rule out cardiac infarct or ischemia. Telemetry monitoring. For reduction of heartburn symptoms we will start Carafate 1gm prior to meals and bedtime. Also will give TUMS PRN and Protonix 40mg IV twice daily. Thorazine as needed for acute Hiccups Continue home medications including Benazepril 5mg daily and Lipitor 10mg at bedtime. Will continue with SCDs to bilateral lower extremity for DVT prophylaxis We will repeat CBC and BMP labs in the morning, to follow blood counts, renal function and electrolytes Again, patient does wish to be a full code and this orders written Will discuss further plan with attending, Dr. Buenrostro. At time of discharge medical care will return to primary care provider, Dr. Copeland. 11/13 Doing great other than continued severe heartburn and bothersome hiccups. No mouth pain or pain with swallowing. Denies nausea or ab pain. No stomatitis. Breathing feels well-not noticing SOA, cough, congestion or problems breathing. No sinus congestion or drainage. Not feeling palpitations. No muscle aches or pains. Not unsteady when up this morning. Didn't have stool this am, but not feeling crampy or bloated in abdomen. Patient and family concerned about his persistent and severe heartburn symptoms. \ Urine growing GN mamie - check C/S. Continue with antibiotics for coverage. Will give Diflucan 150mg x1 now to cover possible esophageal yeast causing heartburn pain. Discuss with Dr Vasquez about possible EGD. Thorazine as needed to help hiccups. Encourage ambulation. 1999 Reassessed pt Much better afternoon - felt things really improved at 1600. Not having the heartburn. Less hiccups. Has been out walking more and feeling stronger. Breathing well. No nausea. Eating well, but taking oral intake slowly. Dr Vasquez did see pt - are planning to hold on EGD for now. VONNIE SYED MD 11/16/16 0902: Assessment & Plan Plan/Intensity of Service I have seen the patient, I agree with plan outlined by hospitalist. ARTURO ADKINS APRN Nov 14, 2016 13:23 VONNIE SYED MD Nov 16, 2016 09:02
[2016-11-14] MEDS ORDERED: OMEP20CA10 PO (13:34)
[2016-11-14] MEDS ORDERED: CEPH500T PO (13:34)
--- NOTE | 2016-11-14 13:52 | CONSF ---
DATE OF VISIT 11/13/2016 REASON FOR CONSULTATION Consider EGD. IMPRESSION 1. Gastroesophageal reflux disease. 2. Hiccups. 3. History of bladder and prostate cancer. RECOMMENDATIONS 1. At the time of evaluation Jamel had said that his reflux symptoms and hiccups were significantly improved from previously. He felt like he had made significant progress and because he is having minimal trouble at this time I am not sure that an EGD would be warranted to investigate the symptoms. 2. I will recheck the patient's progress tomorrow and see if his symptoms have worsened (he would need a scope done) or if he is continuing to improve. HISTORY OF PRESENT ILLNESS Jamel is a 76-year-old male who was last seen by me in June of 2015 at the time of his Port-A-Cath placement. He has a history of a bladder tumor and is now status post radical cystectomy since October of [address] Redman. He also had incidentally found prostate cancer from the procedure. The patient was admitted to the hospital to investigate chest pressure and tightness. The patient says that three days ago he had a checkup at [facility] and was doing very well. All of his test results were "great." Two days ago at breakfast he started to not feel well. By noon he had an upset stomach and he ate very little. He developed heaviness across his chest. He was wondering whether his symptoms were from a recurrent pneumonia since he had similar symptoms from prior pneumonia. Yesterday he woke up early and he had seen that his blood pressure was high. He took his blood pressure medication and did see improvement in his blood pressure. He still was not feeling well, so he decided to come to the emergency department. He was then admitted to the hospitalist service for ongoing workup. He says that two nights ago he had developed heartburn. He had been given a GI cocktail in the emergency department and then he developed hiccups. Given the sudden onset of reflux and heartburn, I was consulted to consider EGD. Throughout the day today the patient feels like his symptoms have all settled down. His heartburn has subsided and his hiccups are now only periodic in nature with short spells of hiccups. He denies any abdominal pain. He also feels like his chest tightness has improved. He did a stoma appliance change this morning. He does report acid reflux occasionally but says that all he was using for his reflux prior to admission was Tums every 2-3 weeks. He also reports being concerned about his leukocytosis. PAST MEDICAL HISTORY 1. 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 2. Prostate cancer - incidental to radical cystectomy. 3. Hypertension 4. Hypercholesterolemia. PAST SURGICAL HISTORY 1. Right inguinal hernia repair - 1973. 2. Laparoscopic cholecystectomy - 2004. 3. Cystoscopy with right retrograde pyelogram and transurethral resection of large (greater than 5 cm) bladder tumor - 05/29/[address] Dong Poon. Pathology revealed invasive papillary carcinoma with focal squamous differentiation, predominantly grade 3, focally grade 4. The tumor did invade the muscularis propria. 4. Cataract removal. 5. Nephrostomy tube placement - 06/2015. 6. Right internal jugular Port-A-Cath placement - 06/21/[address] Vaughan. 7. Radical cystectomy 10/30/[address] Osvaldo Redman. ALLERGIES No known drug allergies. MEDICATIONS The patient's home medications were reviewed. Hospital medications were also reviewed. See the hospital MAR. SOCIAL HISTORY The patient is . 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 He and his have three children (daughter, son, son). He is a never smoker and denies alcohol and illicit drug use. FAMILY HISTORY Mother - cirrhosis of the liver. Father - coronary artery disease. Maternal aunt - breast cancer. Uncle - pancreatic cancer. There is a history of prostate cancer throughout the family. REVIEW OF SYSTEMS 10-point review of systems was negative except for history of present illness. PHYSICAL EXAMINATION VITAL SIGNS: Temperature 96.1. Pulse 108. Blood pressure 117/72. Respiratory 18. Oxygen saturation 95% on room air. GENERAL: The patient is awake and alert in no acute distress. HEENT: Sclerae clear. Extraocular muscles intact. NECK: Supple with a midline trachea. No lymphadenopathy or thyromegaly are noted. HEART: Regular rate and rhythm. LUNGS: Clear to auscultation bilaterally. ABDOMEN: Soft, nontender, nondistended. His abdomen is a slightly obese. There is an ostomy with pale yellow urine output in the right lower quadrant. EXTREMITIES: No clubbing, cyanosis or edema. NEURO: Cranial nerves II-XII are grossly intact. PSYCHIATRIC: Normal mood and affect. LABORATORY DATA White blood cell count 14.0. Thank you for allowing me to participate in Jamel's care. STON[facility] BROOK UNIVERSITY HOSPITALEusebio
--- NOTE | 2016-11-14 13:54 | DSPDOC ---
General Date Date DATE: 11/14/16 TIME: 13:35 Attending Physician Nora Astorga MD Admitting Physician Nora Astorga MD Consulting Physician Reema Castellanos Admitting Diagnosis leukocytosis, possible port infection, SIRS Discharge Diagnosis Urinary tract infection with Escherichia coli and the patient was cystectomy and history of urostomy, gastroesophageal reflux disease, hiccups, history of invasive papillary carcinoma status post chemotherapy and radical cystectomy, anemia, Sirs, hyperglycemia Procedures None Laboratory Laboratory Tests Test 11/13/16 04:25 11/14/16 10:05 White Blood Count 14.0T/MM3 (4.5-11.0) 6.9T/MM3 (4.5-11.0) Red Blood Count 4.81M/MM3 (4.50-5.90) 3.93M/MM3 (4.50-5.90) Hemoglobin 13.4GM/DL (13.5-17.5) 11.1GM/DL (13.5-17.5) Hematocrit 40.5% (41-53) 33.8% (41-53) Mean Corpuscular Volume 84.2UM3 (80-100) 86.0UM3 (80-100) Mean Corpuscular Hemoglobin 27.9UUG (26-34) 28.2UUG (26-34) Mean Corpuscular Hemoglobin Concent 33.1GM/DL (31-37) 32.8GM/DL (31-37) RDW Standard Deviation 47.9FL (36.9-50.2) 47.6FL (36.9-50.2) Platelet Count 248T/MM3 (130-400) 190T/MM3 (130-400) Mean Platelet Volume 8.5UM3 (9.4-12.4) 8.4UM3 (9.4-12.4) Immature Granulocyte % (Auto) 0.1% (0.0-0.5) Neutrophils (%) (Auto) 84.7% (33-66) Lymphocytes (%) (Auto) 9.5% (23-45) Monocytes (%) (Auto) 5.5% (0-9.0) Eosinophils (%) (Auto) 0.1% (0-4) Basophils (%) (Auto) 0.1% (0-2) Absolute Immature Granulocyte (auto 0.02T/MM3 (0.00-0.03) Absolute Neutrophils (auto) 11.9T/MM3 (1.8-7.7) Absolute Lymphocytes (auto) 1.3T/MM3 (1-4.8) Absolute Monocytes (auto) 0.8T/MM3 (0-0.8) Absolute Eosinophils (auto) 0.0T/MM3 (0-0.5) Absolute Basophils (auto) 0.0T/MM3 (0-0.2) Turbidity < 20 (0-20) < 20 (0-20) Sodium Level 140MEQ/L (134-144) 141MEQ/L (134-144) Potassium Level 4.4MEQ/L (3.6-5) 3.7MEQ/L (3.6-5) Chloride Level 107MEQ/L (98-107) 109MEQ/L (98-107) Carbon Dioxide Level 23MEQ/L (22-30) 23MEQ/L (22-30) Anion Gap 10MEQ/L (5-15) 9MEQ/L (5-15) Blood Urea Nitrogen 22.0MG/DL (9-20) 20.0MG/DL (9-20) Creatinine 1.1MG/DL (0.8-1.5) 1.2MG/DL (0.8-1.5) Glomerular Filtration Rate Calc 65 59 BUN/Creatinine Ratio 20RATIO (6-26) 17RATIO (6-26) Glucose Level 150MG/DL (75-110) 112MG/DL (75-110) Calculated Osmolality 275MOSM/KG (261-280) 275MOSM/KG (261-280) Calcium Level 8.8MG/DL (8.4-10.2) 8.2MG/DL (8.4-10.2) Magnesium Level 1.9MG/DL (1.6-2.3) Total Bilirubin 0.80MG/DL (0.20-1.30) Icterus Index < 2 (0-7) < 2 (0-7) Aspartate Amino Transf (AST/SGOT) 18U/L (17-59) Alanine Aminotransferase (ALT/SGPT) 31U/L (21-72) Alkaline Phosphatase 71U/L (38-126) Total Protein 6.2G/DL (6.3-8.2) Albumin 3.4G/DL (3.5-5.0) Globulin 2.8G/DL (2.4-3.6) Albumin/Globulin Ratio 1.2RATIO (1.1-2.2) Chemistry Specimen Hemolysis < 15 (0-25) < 15 (0-25) Neutrophils % (Manual) 89.0% (33-66) Lymphocytes % (Manual) 8.0% (23-45) Monocytes % (Manual) 1.0% (0-9.0) Eosinophils % (Manual) 2.0% (0-4) Absolute Neutrophils (Manual) 6.1T/MM3 (1.8-7.7) Lymphocytes # (Manual) 0.6T/MM3 (1-4.8) Monocytes # (Manual) 0.1T/MM3 (0-0.8) Eosinophils # (Manual) 0.1T/MM3 (0-0.5) Red Cell Morphology Comment Normal Microbiology Microbiology Date/Time Source Procedure Growth Status 11/12/16 09:21 Cath/Port/Line/Picc Blood Culture - Preliminary NO GROWTH AFTER 48 HOURS Resulted 11/12/16 09:18 Cath/Port/Line/Picc Blood Culture - Preliminary NO GROWTH AFTER 48 HOURS Resulted 11/12/16 09:52 Urine, Wade Indwelling Urine Culture - Final Escherichia Coli Complete URINE CULTURE. Final 11/14/16 Organism 1 ESCHERICHIA COLI COLONY COUNT >100,000 CFU/ml E COLI INTERP RL ------ --------- AMOX/CLAV ACID S 8 AMPICILLIN R >=32 CEFAZOLIN S <=4 CEFEPIME S <=1 CEFTAZIDIME S <=1 CEFTRIAXONE S <=1 CIPROFLOXACIN R >=4 ERTAPENEM S <=0.5 GENTAMICIN S <=1 LEVOFLOXACIN R >=8 NITROFURANTOIN S <=16 TOBRAMYCIN S <=1 TRIMETH/SULFA S <=20 PIPERACILL/TAZO S <=4 URINE CULTURE. Preliminary (changed) 11/13/16 Organism 1 GRAM NEGATIVE TATIANNA COLONY COUNT >100,000 CFU/ml Radiology Chest x-ray on 11/12/2016 showed no acute cardiopulmonary abnormality History of Present Illness Well-known patient to Dr. Karimi with history of bladder cancer diagnosed May 2015, status post neoadjuvant chemotherapy, followed by radical cystectomy. He is currently on observation. Also was noted to have prostate carcinoma found on the radical cystectomy, with a Debra score of 6, 5% of the prostate without lymphovascular invasion. PSA is less than 0.1 on continued follow-up. He was admitted to [facility] yesterday morning with complaint of chest pressure, tightness, frequent heartburn, and hiccups. Cardiology workup negative. Preliminary evidence of possible sepsis; did have evidence of UTI and is currently on Levaquin and vancomycin. Urine culture and blood cultures are pending. At time of intake, patient reclining in hospital bed, at bedside. He is being treated for the heartburn and hiccups. Feels symptoms have decreased, but heartburn and hiccups persist intermittently. He denies fever, chills, headache , vision changes, no cough, or shortness of air. Points to upper sternal area and states that's where he notices the heartburn. He denies nausea or vomiting. He is voiding normally, states last BM was 2 days ago, normal Hospital Course 11/12- Admission Admit as outpatient observation for SIRS, UTI, further chest pain r/o under the care of Dr Buenrostro Due to his hyperglycemia in the ER and no diagnosis of diabetes, we will obtain a HgbA1C and blood glucose monitoring PRN. We will repeat a lactate this afternoon per sepsis protocol. Initial Lactate and pro calcitonin in ER was negative. Given concern as expressed by Dr. Thayer regarding recent Port-A-Cath flush, will treat aggressively. Continue with Levaquin and Vancomycin IV. Blood cultures and urine culture ,pending. Will consult pharmacy for vancomycin dosing Will continue to wait for UA sensitivity, continue on above antimicrobial coverage We will obtain serial Troponins every 6hs x 3 to rule out cardiac infarct or ischemia. Telemetry monitoring. For reduction of heartburn symptoms we will start Carafate 1gm prior to meals and bedtime. Also will give TUMS PRN and Protonix 40mg IV twice daily. Thorazine as needed for acute Hiccups Continue home medications including Benazepril 5mg daily and Lipitor 10mg at bedtime. Will continue with SCDs to bilateral lower extremity for DVT prophylaxis We will repeat CBC and BMP labs in the morning, to follow blood counts, renal function and electrolytes Again, patient does wish to be a full code and this orders written Will discuss further plan with attending, Dr. Buenrostro. At time of discharge medical care will return to primary care provider, Dr. Copeland. 11/13 Doing great other than continued severe heartburn and bothersome hiccups. No mouth pain or pain with swallowing. Denies nausea or ab pain. No stomatitis. Breathing feels well-not noticing SOA, cough, congestion or problems breathing. No sinus congestion or drainage. Not feeling palpitations. No muscle aches or pains. Not unsteady when up this morning. Didn't have stool this am, but not feeling crampy or bloated in abdomen. Patient and family concerned about his persistent and severe heartburn symptoms. \ Urine growing GN tatianna - check C/S. Continue with antibiotics for coverage. Will give Diflucan 150mg x1 now to cover possible esophageal yeast causing heartburn pain. Discuss with Dr Vasquez about possible EGD. Thorazine as needed to help hiccups. Encourage ambulation. 1999 Reassessed pt Much better afternoon - felt things really improved at 1600. Not having the heartburn. Less hiccups. Has been out walking more and feeling stronger. Breathing well. No nausea. Eating well, but taking oral intake slowly. Dr Vasquez did see pt - are planning to hold on EGD for now. 11/14/2016 The patient was seen in his room today accompanied by his . He states he feels well and is ready to go home. He is already walked in the halls 3 times. He is eating and drinking well. He has no more heartburn or any chest tightness. His hiccups have resolved. He has had no mouth pain or thrush. He has not been on any antibiotics recently until this hospitalization. His bowels have been normal. He has a urostomy and that is functioning well and urine looks normal. He has not had any abnormal bleeding. He denies any black stools. On exam today he is alert and oriented 3 and in no acute distress. Chest is clear to auscultation. Cardiovascular reveals a regular rate and rhythm. Abdomen is soft and nontender nondistended with positive bowel sounds. He has a urostomy in the right lower quadrant with normal colored urine and stoma appears normal. Extremities are free of edema. HEENT reveals sclerae to be anicteric and oropharynx is moist and without any signs of thrush Lab today reveals white count to be normal at 6.9. Hemoglobin is 11.1 down from 13.4 yesterday and 15.1 the day prior. Platelets are normal. He has no bandemia. Basic metabolic profile is essentially normal. BUN is down to 20. Creatinine is stable at 1.2. Culture showed Escherichia coli sensitive to cefazolin and Rocephin. It was resistant to Levaquin. He did receive Levaquin on the day of admission. He was only on vancomycin yesterday. Today Rocephin was initiated. White count has normalized. I did notify the patient that he received vancomycin only yesterday and no Levaquin or Rocephin. Regarding urinary tract infection, he received Rocephin 1 this morning. Will start cephalexin 500 mg 3 times tomorrow morning and he will take for 7 days. Regarding chest tightness, GERD and hit cups, the symptoms have all resolved. We 'll discharge on oral omeprazole for 14 days. Overall, the patient appears to be doing well and is stable for dismissal to home. I do recommend that he follows up with Dr. Karimi next week and have lab work then. I did discuss this with SETH Minor for Dr. Karimi. I also recommend that he follow up with Dr. Copeland. I will call and notify him of findings and discharge plans. The patient was told to return to the emergency room if he should be feeling worse again and specifically if he should develop chest pains, fever, rash, abdominal pain, excessive fatigue or any other concerning symptoms. We'll dismiss to home in stable condition. Ativan 35 minutes of time was spent seeing and evaluating the patient on dismissal day. Problems: (1) SIRS (systemic inflammatory response syndrome) Status: Acute (2) UTI (urinary tract infection) Status: Acute (3) Acute hyperglycemia Status: Acute Assessment & Plan: Present on admission, glucose was 209 in absence of diabetes (4) Heartburn Status: Acute (5) Leukocytosis Status: Acute (6) Hypertension Status: Chronic (7) Hyperlipemia Status: Chronic (8) Presence of urostomy Status: Chronic (9) Port-a-cath in place Status: Chronic (10) History of bladder cancer Status: Resolved (11) History of prostate cancer Status: Resolved Code Status Full Code Home Meds Active Scripts Cephalexin (Cephalexin) 500 Mg Tablet, 1 TAB PO TID for 7 Days, #21 TAB Start on the morning of 11/15/2016 Prov:NORA ASTORGA MD 11/14/16 Omeprazole (Omeprazole) 20 Mg Capsule.dr, 20 MG PO ACB for 14 Days, #14 CAP Take 1 capsule, by mouth, one time a day (before breakfast). Prov:NORA ASTORGA MD 11/14/16 Reported Medications Benazepril HCl (Benazepril HCl) 5 Mg Tablet, 1 TAB PO DAILY, TAB 11/12/16 Cholecalciferol (Vitamin D3) (Vitamin D-3) 2,000 Unit Capsule, 1 TAB PO DAILY 05/29/15 Atorvastatin Calcium (Atorvastatin Calcium) 10 Mg Tablet, 1 TAB PO HS, TAB 05/28/15 Face to Face Encounter I met with patient on the day of dismissal and discussed follow up appointments , medications, and safety plan. Discharge Disposition Dismiss to home with his in stable condition Copies To 1: KESHA COEPLAND MD; WILY KARIMI STEPHANIE L MD Nov 14, 2016 13:38
--- NOTE | 2016-11-14 14:00 | NUR ---
Review Reviewed assessment with student. I agree.
--- NOTE | 2016-11-14 14:10 | NUR ---
DISCHARGE PORT A CATH DEACCESSED AND HEPARINIZED WITH 500 UNITS OF HEPARIN. PT IS WHEELED OUT TO PRIVATE CAR ACCOMPANIED BY SPOUSE. MEDICATIONS AND DISCHARGE INSTRUCTIONS DISCUSSED, ALL QUESTIONS ANSWERED.
--- NOTE | 2016-11-14 18:01 | PNF ---
DATE OF VISIT 11/14/2016 REASON FOR VISIT Follow reflux and hiccups. SUBJECTIVE Jamel says that his prior symptoms have improved even more. He denies any reflux or any of the chest heaviness. He does say that he has had ongoing brief episodes of one or two hiccups but has no other significant complaints for me. OBJECTIVE Vitals: Temperature 96.7, pulse 104, blood pressure 129/69, respiratory rate 14, oxygen saturation 95% on room air. GENERAL: The patient is awake and alert, in no acute stress. ABDOMEN: Soft, nontender, nondistended. ASSESSMENT 1. Gastroesophageal reflux disease - controlled and minimally symptomatic. 2. Hiccups - improved. PLAN I do not see need for surgical intervention given the ongoing improvement of his symptoms. Please contact me if any further surgical care is needed. TIFFANY
== END 2016-11-14 14:25 | disposition home or self-care (01) | DRG 872 ==
LOC: ED 07:01 → EDHOLD 09:25 → MED 10:00 → INTOOBSV 10:08 → OBSVTOIN 10:08 → UNDODISIN 11-14 14:25
PROVIDERS: ADMIT Hospitalist; ATTEND Internal Medicine
DX: A41.9 Sepsis, unspecified organism (principal); N30.01 Acute cystitis with hematuria; R12 Heartburn; I10 Essential (primary) hypertension; E78.5 Hyperlipidemia, unspecified; K21.9 Gastro-esophageal reflux disease without esophagitis; R06.6 Hiccough; B96.20 Unspecified Escherichia coli [E. coli] as the cause of diseases classified elsewhere; Z93.6 Other artificial openings of urinary tract status; Z90.6 Acquired absence of other parts of urinary tract; Z85.51 Personal history of malignant neoplasm of bladder; Z85.46 Personal history of malignant neoplasm of prostate
CPT/HCPCS: 36415; 80048; 80053; 81001; 83036; 83605; 83690; 83735; 83880; 84145; 84484; 85007; 85025; 85027; 85610; 87040; 87077; 87086; 87186; 93005; 96361; 96374; 99218

== ENCOUNTER → 2016-12-18 | Outpatient (CLI) | payer MEDICARE, OTHER ==
[~2016-12-18] MED LIST changes: -BENA20TA3 PO; +BENA5TAB3 PO; +CEPH500T PO; -HYDR-3989 PO; +OMEP20CA10 PO; -TAMS0.4C47 PO
[2016-12-18 09:23] LABS: BASOPHILS % (AUTO) 0.6 % (0-2); EOSINOPHILS # (AUTO) 0.2 T/MM3 (0-0.5); HGB - HEMOGLOBIN 12.9 GM/DL (13.5-17.5); IMMATURE GRANULOCYTE # (AUTO) 0.01 T/MM3 (0.00-0.03); IMMATURE GRANULOCYTE % (AUTO) 0.1 % (0.0-0.5); LYMPHOCYTES # (AUTO) 1.4 T/MM3 (1-4.8); LYMPHOCYTES % (AUTO) 20.9 % (23-45); MEAN CORPUSCULAR HGB 27.4 UUG (26-34); MEAN CORPUSCULAR HGB CONC(MCHC 32.3 GM/DL (31-37); MEAN CORPUSCULAR VOLUME 84.9 UM3 (80-100); MEAN PLATELET VOLUME 8.1 UM3 (9.4-12.4); MONOCYTES # (AUTO) 0.6 T/MM3 (0-0.8); NEUTROPHILS #(AUTO)-ABSOLUTE 4.5 T/MM3 (1.8-7.7); NEUTROPHILS % (AUTO) 66.4 % (33-66); RED BLOOD COUNT 4.71 M/MM3 (4.50-5.90); WBC - WHITE BLOOD COUNT 6.8 T/MM3 (4.5-11.0)
[2016-12-18 09:33] LABS: ALBUMIN 4.4 G/DL (3.5-5.0); ALBUMIN/GLOBULIN RATIO 1.5 RATIO (1.1-2.2); ALKALINE PHOSPHATASE 97 U/L (38-126); ALT (SGPT) 30 U/L (21-72); ANION GAP 12 MEQ/L (5-15); AST (SGOT) 22 U/L (17-59); BUN/CREATININE RATIO 20 RATIO (6-26); CALCIUM 9.6 MG/DL (8.4-10.2); CHLORIDE 108 MEQ/L (98-107); CO2 - CARBON DIOXIDE 24 MEQ/L (22-30); CREATININE 1.2 MG/DL (0.8-1.5); GLOMERULAR FILTRATION RATE 59; GLUCOSE 96 MG/DL (75-110); LDH 327 U/L (313-618); POTASSIUM 4.1 MEQ/L (3.6-5); SODIUM 144 MEQ/L (134-144); TOTAL PROTEIN 7.3 G/DL (6.3-8.2)
--- NOTE | 2016-12-18 17:17 | DI ---
EXAM: CT CHEST/ABDOMEN/PELVIS W/O IV contrast COMPARISON: 09/22/2016. 07/02/2016. HISTORY: ITS.REASON: C61 PROSTATE CA; C67.8 Malignant neoplasm of overlapping sites of [place] [facility] [place]CHNIQUE: Without IV contrast, helically acquired scans were obtained from the lung apices through the domes of the diaphragms. The study is reviewed in soft tissue, bone and lung windows. The study is reconstructed in thinner axial sections and in coronal reformations. The current CT scan was performed using radiation dose-reduction techniques. FINDINGS: SOFT TISSUES: No axillary or supraclavicular, mediastinal, or hilar lymphadenopathy is identified. The vascular structures appear unremarkable. No significant pericardial effusion is identified. Small mediastinal lymph nodes are noted but are not pathologically enlarged. Some coronary artery calcifications are noted. CHEST WALL: Unremarkable. BONES: Endplate sclerosis and spurring is noted of the thoracic spine. No evidence for osseous metastasis. LUNGS: Dependent atelectatic changes are noted. The lungs are clear. No pulmonary nodules or masses are identified. CHEST IMPRESSION: No evidence for pulmonary metastasis is identified. ABDOMEN AND PELVIS FINDINGS: LIVER: Unremarkable. GALLBLADDER: The gallbladder is surgically absent with surgical clips seen in the gallbladder fossa. SPLEEN: Unremarkable. PANCREAS: Unremarkable. ADRENAL GLANDS: Unremarkable. AORTA/IVC/VASCULATURE: Unremarkable. LYMPH NODES: No lymphadenopathy is identified. Small lymph nodes are noted, but are not pathologically enlarged. GENITOURINARY: The kidneys and proximal ureters appear unremarkable. There may be an ileal conduit at the right lower quadrant. BOWEL: Sigmoid diverticula are noted without evidence for acute diverticulitis. Diverticula are scattered throughout the remainder of the colon. The terminal ileum is unremarkable. The appendix is unremarkable. A Segment of small bowel which has anastomotic sutures is herniated through the ostomy defect into the anterior right abdominal wall. This may be from the ileal conduit donator site. The small bowel is unremarkable. The duodenum and stomach are relatively unremarkable although there may be a small hiatal hernia present. ABDOMINAL/PELVIC WALL: Midline incision scar is noted. An ostomy is seen at the right lower quadrant of the abdomen likely for the ileal conduit with a herniated segment of small bowel noted as well. BONES: Facet hypertrophic changes are seen of the lower lumbar spine. SI joint degenerative changes with sclerosis and spurring is noted. No evidence for osseous metastasis. ABDOMEN AND PELVIS IMPRESSION: 1. No evidence for metastatic disease in the abdomen or pelvis. 2. Status post cholecystectomy without intra or extrahepatic ductal dilatation. 3. Colonic diverticuli without evidence for acute diverticulitis. 4. An ileostomy is seen at the right lower quadrant. Herniated segment of small bowel is herniated through the ostomy defect which have anastomotic sutures noted. .
== END ==
LOC: IMA 09:06
PROVIDERS: ATTEND Internal Medicine Hematology & Oncology
DX: C61 Malignant neoplasm of prostate (principal); C67.8 Malignant neoplasm of overlapping sites of bladder; K57.30 Diverticulosis of large intestine without perforation or abscess without bleeding; Z90.49 Acquired absence of other specified parts of digestive tract; Z93.2 Ileostomy status
CPT/HCPCS: 36415; 80053; 83615; 83735; 84153; 85025